=== PATIENT | male | born 1945 | race Caucasian/White ===

== ENCOUNTER 2022-04-03 08:58 | Outpatient (REF) | payer MEDICARE, SELFPAY ==
[2022-04-03 11:06] LABS: MANUAL DIFF FLAG NO
[2022-04-03 11:31] LABS: Appearance Urine HAZY; Color Urine YELLOW; Glucose Urine UA NEG (NEG); Leukocyte Esterase Urine 1+ (NEG); Nitrite Urine POS (NEG); PH 7.5 (5.0-8.0); Urine Blood TRACE (NEG); Urine Ketones NEG (NEG); Urine Protein NEG (NEG-TRACE)
[2022-04-03 11:45] LABS: Alanine Aminotransferase 53 U/L (0-40); Albumin Level 3.9 g/dL (3.5-5.0); Alkaline Phosphatase 73 U/L (39-117); Anion Gap 15 (12-20); Aspartate Amino Transferase 33 U/L (5-37); Bilirubin Total 1.1 mg/dL (0.0-1.0); Blood Urea Nitrogen 13 mg/dL (9-16); Calcium 9.3 mg/dL (8.4-10.2); Carbon Dioxide 24 mmol/L (22-29); Chloride 104 mmol/L (96-108); Cholesterol 166 mg/dL; Estimated Glomerular Filt Rate > 60; Glucose Fasting 149 mg/dL (60-99); HDL Cholesterol 36 mg/dL; LDL Cholesterol Calculated 95 mg/dl; Potassium 4.6 mmol/L (3.3-5.1); Sodium 138 mmol/L (135-145); Total Protein 6.8 g/dL (6.5-8.0); Triglycerides 178 mg/dL
[2022-04-03 11:46] LABS: Bacteria Urine 3+ /LPF; RBC Urine 0-2 /HPF (0); WBC Urine 30-49 /HPF (0-4)
[2022-04-03 12:09] LABS: Basophils Percent Auto 0.3 % (0-2); Eosinophils Absolute Auto 0.2 X10*3/uL (0.0-0.4); Eosinophils Percent Auto 3.1 % (0-4); Hematocrit 42.9 % (42.0-52.0); Hemoglobin 14.5 g/dl (14.0-18.0); Imm Gran Abs Auto 0.03 X10*3/uL (0.00-0.03); Imm Gran Pct Auto 0.5 % (0.0-0.4); Lymphocytes Absolute Auto 2.2 X10*3/uL (1.2-4.9); Lymphocytes Percent Auto 38.7 % (20-40); Mean Corpuscular HGB Conc 33.8 g/dl (31.0-36.0); Mean Corpuscular Hemoglobin 31.9 pg (27.0-33.0); Mean Corpuscular Volume 94.3 fL (80.0-98.0); Mean Platelet Volume 9.2 fL (9.4-12.4); Monocytes Absolute Auto 0.4 X10*3/uL (0.1-1.2); Monocytes Percent Auto 7.1 % (2-11); Neutrophils Absolute Auto 2.9 x10*3/uL (2.0-8.3); Neutrophils Percent Auto 50.3 % (45-73); Platelet Count 192 X10*3/uL (160-400); Prostate Specific Antigen Scr 2.91 ng/mL (<0.05-4.0); Red Blood Count 4.55 X10*6/uL (4.60-5.80); Red Cell Distribution Width 12.2 % (11.0-16.0); White Blood Count 5.8 X10*3/uL (4.8-10.8)
[2022-04-03 12:10] LABS: Creatinine Urine 82.79 mg/dL; Microalbum/Creatinine Ratio Ur 56.7 ug/mg cr
== END 2022-04-03 08:59 | disposition home or self-care (01) ==
LOC: HO.WFDLDS 08:58
PROVIDERS: Visit Provider Family Medicine
DX: Z00.00 Encounter for general adult medical examination without abnormal findings (principal); Z12.5 Encounter for screening for malignant neoplasm of prostate; I10 Essential (primary) hypertension
CPT/HCPCS: 36415; 80053; 80061; 81001; 82043; 84153; 84443; 85025

== ENCOUNTER 2022-06-16 | Outpatient (REF) | payer MEDICARE, SELFPAY | END 2022-06-16 00:01 | disposition home or self-care (01) | LOC: HO.LNP | PROVIDERS: Visit Provider Family Medicine | DX: R33.9 Retention of urine, unspecified (principal); R82.71 Bacteriuria | CPT/HCPCS: 87086 ==

== ENCOUNTER 2022-09-22 11:33 | Outpatient (REF) | payer MEDICARE, SELFPAY | END 2022-09-22 11:34 | disposition home or self-care (01) | LOC: HO.LAB 11:33 | PROVIDERS: Visit Provider Family Medicine | DX: Z13.89 Encounter for screening for other disorder (principal) ==

== ENCOUNTER 2023-06-30 07:49 | Outpatient (REF) | payer MEDICARE, SELFPAY ==
[2023-06-30 11:10] LABS: MANUAL DIFF FLAG NO
[2023-06-30 11:52] LABS: Alanine Aminotransferase 28 U/L (0-40); Albumin Level 3.9 g/dL (3.5-5.0); Alkaline Phosphatase 72 U/L (39-117); Anion Gap 12 (12-20); Aspartate Amino Transferase 20 U/L (5-37); Bilirubin Total 1.1 mg/dL (0.0-1.0); Blood Urea Nitrogen 16 mg/dL (9-16); Calcium 9.3 mg/dL (8.4-10.2); Carbon Dioxide 22 mmol/L (22-29); Chloride 108 mmol/L (96-108); Cholesterol 159 mg/dL (<200); Estimated Glomerular Filt Rate > 60; Glucose Fasting 137 mg/dL (60-99); HDL Cholesterol 34 mg/dL (>40); LDL Cholesterol Calculated 91 mg/dL (<100); Potassium 4.4 mmol/L (3.3-5.1); Sodium 138 mmol/L (135-145); Total Protein 6.8 g/dL (6.5-8.0); Triglycerides 174 mg/dL (<150)
[2023-06-30 11:53] LABS: Basophils Percent Auto 0.4 % (0-2); Eosinophils Absolute Auto 0.2 X10*3/uL (0.0-0.4); Eosinophils Percent Auto 2.4 % (0-4); Hematocrit 43.4 % (42.0-52.0); Hemoglobin 14.9 g/dl (14.0-18.0); Imm Gran Abs Auto 0.06 X10*3/uL (0.00-0.03); Imm Gran Pct Auto 0.8 % (0.0-0.4); Lymphocytes Absolute Auto 2.8 X10*3/uL (1.2-4.9); Lymphocytes Percent Auto 36.9 % (20-40); Mean Corpuscular HGB Conc 34.3 g/dl (31.0-36.0); Mean Corpuscular Hemoglobin 32.5 pg (27.0-33.0); Mean Corpuscular Volume 94.8 fL (80.0-98.0); Mean Platelet Volume 9.7 fL (9.4-12.4); Monocytes Absolute Auto 0.5 X10*3/uL (0.1-1.2); Monocytes Percent Auto 6.7 % (2-11); Neutrophils Percent Auto 52.8 % (45-73); Platelet Count 208 X10*3/uL (160-400); Red Blood Count 4.58 X10*6/uL (4.60-5.80); Red Cell Distribution Width 12.2 % (11.0-16.0); White Blood Count 7.6 X10*3/uL (4.8-10.8)
[2023-06-30 12:01] LABS: Appearance Urine Clear; Color Urine Yellow; Glucose Urine UA Negative (Negative); Leukocyte Esterase Urine Small (1+) (Negative); Nitrite Urine Negative (Negative); PH 5.5 (5.0-9.0); Prostate Specific Antigen Scr 4.56 ng/mL (<0.05-4.0); UMIC TRIGGER UA YES; Urine Blood Negative (Negative); Urine Ketones Negative (Negative); Urine Protein Negative (Neg-Trace)
[2023-06-30 12:11] LABS: TSH reflex Free T4 1.77 uIU/mL (0.32-4.0)
[2023-06-30 12:21] LABS: Bacteria Urine None Seen (None Seen); Hyaline Casts Urine 0-2 /LPF (0-2); RBC Urine 0-2 /HPF (0-2); Squamous Epithelial Cell Urine 0-2 /HPF (0-2); WBC Urine 0-5 /HPF (0-5)
[2023-06-30 12:24] LABS: Creatinine Urine 108.65 mg/dL; Microalbum/Creatinine Ratio Ur 39.5 ug/mg cr (<30)
== END 2023-06-30 07:50 | disposition home or self-care (01) ==
LOC: HO.WFDLDS 07:49
PROVIDERS: Visit Provider Family Medicine
DX: Z00.00 Encounter for general adult medical examination without abnormal findings (principal); I10 Essential (primary) hypertension; Z12.5 Encounter for screening for malignant neoplasm of prostate
CPT/HCPCS: 36415; 80053; 80061; 81001; 81003; 82043; 84153; 84443; 85025

== ENCOUNTER 2023-06-30 14:25 | Outpatient (AMB) | payer MEDICARE, SELFPAY ==
--- NOTE | 2023-06-30 14:28 | A.OFFPC_ITS ---
Vital Signs 06/30/23 14:30 Height 5 ft 11 in Weight 285 lb BMI 39.7 BP 130/70 Blood Pressure Location Lt brachial Position Sitting Pulse 56 Pulse Source Pulse Oximeter Pulse Oximetry (%) 98 Oxygen Delivery Method Room Air Intake Visit Reasons: f/u diabetes and hypertension Intake Note: Patient is here with diabetes and hypertension follow up. Patient is requesting Ketoconazole cream refill today. Allergies aspirin Allergy (Mild, Verified 04/30/23 14:37) swelling Tobacco use date assessed: 06/30/23 Fall risk assessment: No Falls in past year Last assessed Fall Risk: 06/30/23 Dental Screening Dental Screen Date: 06/30/23 Did you have a dental visit in the last 12 months?: Yes Did you have a dental problem in the last 6 months where you did not have access to dental care?: No Was dental information given to patient?: Patient has dentist HPI f/u diabetes and hypertension HPI Details 77 y/o male presents to f/u diabetes and hypertension. Last A1c 04/30/23 6.7%. He is on metformin 250mg b.i.d. Blood pressure today is 130/70. He is on metoprolol 25mg and hydrochlorothiazide 12.5mg daily. Labs were drawn 02/28/23. Reviewed labs with pt. Triglycerides 174. TC 159. LDL 91. HDL low at 34. PSA elevated at 4.56. Microalb/Creat Ratio 39.5 ug/mg. [facility] Medical History Deviated septum Surgical History H/O right inguinal hernia repair H/O transurethral resection of prostate Social History Housing: House Patient Tobacco Use Status: Never used Tobacco e-Cigarette/Vaping Use: Never Used Second Hand Smoke Exposure: No service: No Current occupational status: retired Current occupational exposures/hazards: No Cognitive needs: No Hearing needs: No Vision needs: No Questionnaire RADHA-7 AMB Questionnaire RADHA-7 Date RADHA - 7 assessed: 03/25/22 Source: Developed by Drs. Randall Ya, Monet B.W. Darrell Callejas and colleagues, with an educational елена from [employer] Review of Systems Const Denies chills, Denies fatigue, Denies fever(s), Denies headache(s) and Denies weakness ENT Denies dizziness and Denies headache(s) Card Denies chest pain, Denies lightheadedness, Denies dyspnea and Denies other (Palpitations) Resp Denies cough, Denies dyspnea, Denies wheezing and Denies other ( shortness of breath) Musc Denies numbness and Denies tingling Neuro Denies dizziness, Denies headache(s), Denies numbness, Denies tingling, Denies paresthesias and Denies weakness Psych Denies anxiety and Denies depression Endo Denies fatigue Aller/Immun Denies wheezing Physical exam (Primary Care) Vital Signs: Last Vital Signs Pulse 56 06/30/23 14:30 BP 130/70 06/30/23 14:30 Pulse Ox 98 06/30/23 14:30 Oxygen Delivery Method Room Air 06/30/23 14:30 BMI result Body Mass Index 39.7 Tobacco/Smoking Status: Tobacco use Status Tobacco use date assessed 06/30/23 06/30/23 14:37 Patient Tobacco Use Status Never used Tobacco 06/30/23 14:37 e-Cigarette/Vaping Use Never Used 06/30/23 14:37 Const General: no acute distress and well developed Nutritional Appearance: well nourished Orientation/consciousness: patient oriented x3 HENMT Head: Yes normocephalic and Yes atraumatic Eyes General: appearance normal, both eyes and all related structures Pupils: Equal, round and reactive pupils present EOM: EOMs intact bilaterally Resp Effort & Inspection: normal respiratory effort Auscultation: clear to auscultation bilaterally Cardio Rate: regular rate Rhythm: regular rhythm Heart sounds: S1 normal heart sound present, S2 normal heart sound present, no gallops, no murmurs and no rubs Neuro General: patient oriented x3 and gait normal Cranial nerves: Yes Equal, round and reactive pupils present Psych Affect: normal affect Assessment and Plan Assessment & Plan (1) Diabetes: Code(s): E11.9 - Type 2 diabetes mellitus without complications Plan: A1c at last office visit was 6.7%. Good control. No significant changes in diet or weight Encouraged exercise (2) Hypertension: Code(s): I10 - Essential (primary) hypertension Plan: Blood pressure is controlled though little higher than his last visit Adding a small dose of lisinopril which may help with blood pressure as well as microalbuminuria (3) Microalbuminuria: Code(s): R80.9 - Proteinuria, unspecified Plan: Adding some lisinopril (4) Elevated PSA: Code(s): R97.20 - Elevated prostate specific antigen [PSA] Plan: History of BPH and TURP in about 2004 No current urologist-referring to Urology Orders: Referrals Urology Referral R97.20 - Elevated prostate specific antigen [PSA] Medications: New lisinopril 2.5 mg PO DAILY 30 tabs 2RF 30 days Refilled ketoconazole 2% 1 appl topical DAILY 30 days 60 grams 2RF Coding Level of Care Code Est Pt Level 4 (15890) Diagnoses Diabetes E11.9 Hypertension I10 Microalbuminuria R80.9 Elevated PSA R97.20
[2023-06-30 14:30] VITALS: BP 130/70; PULSE 56; O2SAT 98; BMI 39.7
== END 2023-06-30 15:17 | disposition home or self-care (01) ==
PROVIDERS: PCP Family Medicine; Visit Provider Family Medicine
DX: E11.9 Type 2 diabetes mellitus without complications (principal); I10 Essential (primary) hypertension; R80.9 Proteinuria, unspecified; R97.20 Elevated prostate specific antigen [PSA]
CPT/HCPCS: 99214

== ENCOUNTER 2023-08-24 09:58 | Outpatient (AMB) | payer MEDICARE, SELFPAY ==
--- NOTE | 2023-08-24 10:00 | A.OFFVIS_ITS ---
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 Accompanied by: Self / Same As Patient Allergies aspirin Allergy (Mild, Verified 08/24/23 10:35) swelling Medication List - Last Reconciled 08/24/23 by EM JamaP- cetirizine (All Day Allergy (cetirizine)) 10 mg PO DAILY PRN 90 days clopidogrel 75 mg PO DAILY 90 days diphenhydramine HCl 2% (Benadryl) 1 appl topical TID PRN 14 days fluticasone propionate 50 mcg/actuation (Flonase Allergy Relief) 1 spray intranasal Q12H 30 days ketoconazole 2% 1 appl topical DAILY 30 days lisinopril 2.5 mg PO DAILY 30 days metformin 250 mg (1/2 x 500 mg) PO BID 90 days metoprolol succinate ER 25 mg PO DAILY 90 days simvastatin 20 mg PO BEDTIME 90 days HPI HPI Comments History of Present Illness Details Gilberto is a very pleasant 77-year-old male patient of . Has a past medical history of hypertension, hyperlipidemia, diabetes, and seasonal allergies. He presents to the office today as a new patient for an elevated PSA. In discussion with the patient today reports to be doing and feeling well. He reports previous TURP in [address] [facility]. However, has not followed up with a urologist in many years. In review of patient's chart it appears PSAs are as follows: 03/30-2.9 07/01--4.6 When asked he denies any bothersome urinary issues or concerns at this time. Does report urinary frequency in the morning however relates this to his coffee consumption. He otherwise denies urinary urgency, urinary frequency, incontinence, nocturia, hematuria, dysuria, foul smelling urine, changes to urinary stream, flank pain, fever, and or chills. He is happy with his current voiding parameters. Discussed at length potential causes for elevated PSA. Discussed redraw of PSA with no sex the night before, no coffee/caffeine morning of, and no heavy lifting 1-2 days prior to lab draw. Discussed obtaining retroperitoneal ultrasound for further assessment evaluation. In office urinalysis results reviewed with the patient today. CHANTELLE offered and deferred. He otherwise offers no other issues or concerns at this time. [facility] Medical History (Updated 08/24/23 @ 10:42 by MARLON Jama) Diabetes Hyperlipidemia Hypertension Deviated septum Surgical History H/O transurethral resection of prostate H/O right inguinal hernia repair Social History Housing: House Patient Tobacco Use Status: Never used Tobacco e-Cigarette/Vaping Use: Never Used Second Hand Smoke Exposure: No service: No Current occupational status: retired Current occupational exposures/hazards: No Cognitive needs: No Hearing needs: No Vision needs: No Review of Systems Const All systems reviewed & are unremarkable except as noted in HPI and below Eyes Reports no additional complaints ENT Reports no additional complaints Card Reports as per HPI Resp Reports no additional complaints GI Reports no additional complaints Reports as per HPI Musc Reports no additional complaints Neuro Reports no additional complaints Psych Reports no additional complaints Endo Reports as per HPI Osei/Lymph Reports no additional complaints Aller/Immun Reports as per HPI Physical Exam Const General: cooperative, healthy appearing, comfortable, no acute distress, well developed, alert and awake Nutritional Appearance: overweight Orientation/consciousness: patient oriented x3 Limitations: no limitations HEENT Head: Yes normal to inspection, Yes normocephalic and Yes atraumatic Ears: hearing grossly normal bilaterally Eyes General: appearance normal, both eyes and all related structures Neck Neck: Yes normal visual inspection and Yes trachea midline Chest Chest palpation & inspection: normal inspection of the chest Resp Effort & Inspection: normal respiratory effort and able to speak in complete sentences Cardio Rate: regular rate GI Inspection: Yes normal to inspection General: Yes no CVA tenderness Back/Spine/Pelvis Back: no CVA tenderness Skin General skin exam: no rashes or lesions noted Neuro General: patient oriented x3 Extrem General: Yes normal to inspection Psych Appearance: grossly normal and well kempt Mental Status: mental status grossly normal Speech and movement: Normal speech and movement present and Clear speech present Affect: normal affect Attitude: cooperative Thought process: Normal thought process present Thought content: Normal thought content present Insight: Fair insight present (Psych) Judgement: Fair judgement present (Psych) Results AMB Urinalysis, Automated UA Leukoctes 0 Arnold/uL Last Edit by Lisset Enciso on 08/24/23 10:19 UA Nitrite Negative Last Edit by [employer] Luciass on 08/24/23 10:19 UA Urobilinogen 0.2 mg/dL Last Edit by [employer] Bress on 08/24/23 10:19 UA Protein 30 mg/dL Last Edit by [employer] Luciass on 08/24/23 10:19 UA pH 6.0 Last Edit by [employer] GoodyTagss on 08/24/23 10:19 UA Blood 0 Aureliano/uL Last Edit by [employer] GoodyTagss on 08/24/23 10:19 UA Specific [place] 1.025 Last Edit by [employer]yan[employer] on 08/24/23 10:19 UA Ketone Negative Last Edit by [employer] Goody[employer]rob on 08/24/23 10:19 UA Bilirubin 0 mg/dL Last Edit by [employer] Goody[employer]rob on 08/24/23 10:19 UA Glucose 0 mg/dL Last Edit by [employer] on 08/24/23 10:19 Results Reviewed Results Reviewed: Laboratory Last Values Urine pH (Auto) 6.0 08/24/23 10:11 Specific [place] (Auto) 1.025 08/24/23 10:11 Urine Protein (Auto) 30 mg/dL 08/24/23 10:11 Glucose (UA)(Auto) 0 mg/dL 08/24/23 10:11 Urine Ketones (Auto) Negative 08/24/23 10:11 Urine Blood (Auto) 0 Aureliano/uL 08/24/23 10:11 Urine Nitrite (Auto) Negative 08/24/23 10:11 Urine Bilirubin (Auto) 0 mg/dL 08/24/23 10:11 Urine Urobilinogen (Auto) 0.2 mg/dL 08/24/23 10:11 Leukocyte Esterase (Auto) 0 Arnold/uL 08/24/23 10:11 Assessment & Plan Assessment & Plan (1) Urinary frequency: Code(s): R35.0 - Frequency of micturition (2) Elevated PSA: Code(s): R97.20 - Elevated prostate specific antigen [PSA] Plan In office urinalysis results reviewed with the patient today; as noted above. Discussed at length potential causes for elevated PSA. Discussed importance of managing diabetes for improvement in overall health and well-being. Will obtain redraw of PSA with specific instructions as noted above. Will obtain retroperitoneal ultrasound for further assessment evaluation. Patient denies any bothersome urinary issues or concerns at this time He reports be happy with current voiding parameters Follow-up in 4-6 weeks with imaging and labs to be completed prior; or sooner with any issues, concerns, and or questions. Orders: Orders US retroperitoneal comp Today R35.0 - Frequency of micturition AMB Urinalysis Automated Today Z13.9 - Encounter for screening, unspecified PSA,Total (Free>4and<10) Today R97.20 - Elevated prostate specific antigen [PSA] Patient Instructions: The patient had an opportunity to ask questions regarding the treatment plan. All questions were answered. Physical exam, labs, and imaging were discussed and reviewed in detail. As well as risks, benefits, and discussion of treatment choices. No major barriers to understanding were identified. The patient expressed understanding and agreement with the above treatment plan. The patient was made aware they should contact our office by phone for worsening of their current condition, the appearance of new symptoms, or with any questions or concerns. Compliance is encouraged with any medications and follow up testing that is ordered. It is a privilege to be allowed the opportunity to participate in? your urological care.? Again, if you have any questions or concerns If you have any questions or concerns please do not hesitate to contact me. The office is [phone]. This note is constructed using voice recognition software. While every effort has been made to ensure accuracy character impersonator errors may have been included. Yours sincerely, MARLON Jama Coding Level of Care Code New Pt Level 3 (43232) Diagnoses Urinary frequency R35.0 Elevated PSA R97.20
== END 2023-08-24 10:39 | disposition home or self-care (01) ==
PROVIDERS: PCP Family Medicine; Visit Provider Nurse Practitioner Family
DX: R35.0 Frequency of micturition (principal); R97.20 Elevated prostate specific antigen [PSA]; Z13.9 Encounter for screening, unspecified
CPT/HCPCS: 99203

== ENCOUNTER → 2023-08-24 09:58 | Outpatient (BNVA) | payer MEDICARE, SELFPAY | PROVIDERS: PCP Family Medicine; Visit Provider Nurse Practitioner Family | DX: R35.0 Frequency of micturition (principal); R97.20 Elevated prostate specific antigen [PSA] | CPT/HCPCS: 81003 ==

== ENCOUNTER 2023-09-28 10:09 | Outpatient (REF) | payer MEDICARE, SELFPAY ==
--- NOTE | ~2023-09-28 | US_ITS ---
EXAMINATION: US RETROPERITONEAL COMPLETE (RENAL) CLINICAL INFORMATION: Frequency of micturition. COMPARISON: None available. TECHNIQUE: Real-time imaging of the kidneys and bladder. Limited visualization due to bowel gas and body habitus. FINDINGS: RIGHT KIDNEY: 12.6 x 6.3 x 5.7 cm (SAG x AP x TRV). Right renal 0.5 cm upper pole calculus. No hydronephrosis. Renal cortical thickness is normal. Limited visualization. LEFT KIDNEY: 12.3 x 6.4 x 5 x 2.9 cm (SAG x AP x TRV). No hydronephrosis. No renal calculi. Renal cortical thickness is normal. Limited visualization. Left renal lower pole 1.6 x 1.4 x 1.7 cm cyst with benign features. There is no indication for follow-up imaging. BLADDER: Well-distended and unremarkable. Bilateral ureteral jets are demonstrated. Prevoid bladder volume is 380.0 mL. Postvoid bladder volume is 246.2 mL. ADDITIONAL FINDINGS: Enlarged prostate with volume 213.0 mL is very difficult to evaluate due to severely limited visualization and therefore these measurements are of limited accuracy. US/US retroperitoneal comp IMPRESSION: 1. Right renal 0.5 cm upper pole calculus. No hydronephrosis. 2. Post void bladder volume is 246.2 mL. 3. Enlarged prostate with volume 213.0 mL is very difficult to evaluate due to severely limited visualization and therefore these measurements are of limited accuracy.
[2023-09-28 11:53] LABS: Estimated Average Glucose 151 mg/dL; Hemoglobin A1c % 6.9 % (<6.0)
[2023-09-28 12:52] LABS: Alanine Aminotransferase 27 U/L (0-40); Albumin Level 4.1 g/dL (3.5-5.0); Alkaline Phosphatase 67 U/L (39-117); Anion Gap 11 (12-20); Aspartate Amino Transferase 20 U/L (5-37); Bilirubin Total 1.1 mg/dL (0.0-1.0); Blood Urea Nitrogen 13 mg/dL (9-16); Calcium 9.1 mg/dL (8.4-10.2); Carbon Dioxide 27 mmol/L (22-29); Chloride 106 mmol/L (96-108); Estimated Glomerular Filt Rate > 60; Glucose Fasting 137 mg/dL (60-99); Potassium 4.1 mmol/L (3.3-5.1); Sodium 140 mmol/L (135-145); Total Protein 7.1 g/dL (6.5-8.0)
== END 2023-09-28 10:10 | disposition home or self-care (01) ==
LOC: HO.US 10:09
PROVIDERS: PCP Family Medicine; Visit Provider Nurse Practitioner Family
DX: Z00.00 Encounter for general adult medical examination without abnormal findings (principal); R35.0 Frequency of micturition; L98.9 Disorder of the skin and subcutaneous tissue, unspecified; R73.01 Impaired fasting glucose
CPT/HCPCS: 36415; 76770; 80053; 83036

== ENCOUNTER 2023-10-05 13:49 | Outpatient (AMB) | payer MEDICARE, SELFPAY ==
[2023-10-05 13:59] VITALS: BP 130/72; PULSE 64; O2SAT 98; BMI 39.0
--- NOTE | 2023-10-05 13:59 | MHC.PC.OV ---
Vital Signs 10/05/23 13:59 Height 5 ft 11 in Weight 279 lb 8 oz BMI 39.0 BP 130/72 Blood Pressure Location Lt brachial Position Sitting Pulse 64 Pulse Source Pulse Oximeter Pulse Oximetry (%) 98 Oxygen Delivery Method Room Air Intake Visit Reasons: CPE with f/u labs and health maint. Intake Note: Patient is here for his physical today and follow up on labs. Patient would like a refill on his Lisinopril. Allergies aspirin Allergy (Mild, Verified 10/05/23 14:03) swelling Tobacco use date assessed: 06/30/23 HPI CPE with f/u labs and health maint. HPI Details 77 y/o male presents for a CPE with f/u labs and health maintenance. Labs were drawn 09/28/23. Reviewed labs with pt. A1c 6.9%. He is on metformin 250mg b.i.d. Lipid panel drawn in June. Triglycerides 174. TC 159. LDL 91. HDL low at 34. PSA elevated at 4.56. He reports he sees his urologist tomorrow. He notes he has not had a pneumonia shot before. [facility] Medical History (Updated 08/24/23 @ 10:42 by Renuka Adair [facility]) Diabetes Hyperlipidemia Hypertension Deviated septum Surgical History H/O transurethral resection of prostate H/O right inguinal hernia repair Housing: House Patient Tobacco Use Status: Never used Tobacco e-Cigarette/Vaping Use: Never Used Second Hand Smoke Exposure: No service: No Current occupational status: retired Current occupational exposures/hazards: No Cognitive needs: No Hearing needs: No Vision needs: No Questionnaire RADHA-7 AMB Questionnaire RADHA-7 Date RADHA - 7 assessed: 03/25/22 Source: Developed by Drs. Randall Ya, Monet Callejas, Darrell Harmon and colleagues, with an educational елена from [employer]. Review of Systems Const Denies chills, Denies fatigue, Denies fever(s), Denies headache(s) and Denies weakness Eyes Denies change in vision ENT Denies dizziness, Denies headache(s), Denies hearing loss, Denies nasal congestion, Denies sinus pain, Denies sinus pressure and Denies sore throat Card Denies chest pain, Denies lightheadedness, Denies dyspnea and Denies other (palpitations) Resp Denies cough, Denies dyspnea and Denies wheezing GI Denies abdominal pain, Denies melena, Denies hematochezia, Denies change in bowel habits, Denies dyspepsia and Denies nausea Denies hematuria and Denies dysuria Musc Denies abnormal gait, Denies myalgias, Denies arthralgias, Denies numbness and Denies tingling Skin/Breast Denies rash, Denies unusual bruising and Denies wounds Neuro Denies abnormal gait, Denies dizziness, Denies headache(s), Denies memory loss, Denies numbness, Denies Sensory deficit (Neuro), Denies tingling and Denies weakness Psych Denies anxiety, Denies depression and Denies memory loss Endo Denies cold intolerance, Denies fatigue, Denies heat intolerance, Denies polydipsia and Denies polyuria Osei/Lymph Denies easy bleeding and Denies easy bruising Aller/Immun Denies wheezing Physical exam (Primary Care) Vital Signs: Last Vital Signs Pulse 64 10/05/23 13:59 BP 130/72 10/05/23 13:59 Pulse Ox 98 10/05/23 13:59 Oxygen Delivery Method Room Air 10/05/23 13:59 BMI result Body Mass Index 39.0 Tobacco/Smoking Status: Tobacco use Status Tobacco use date assessed 06/30/23 10/05/23 14:02 Patient Tobacco Use Status Never used Tobacco 10/05/23 14:02 e-Cigarette/Vaping Use Never Used 10/05/23 14:02 Const General: no acute distress, well developed, alert and awake Nutritional Appearance: well nourished and obese Orientation/consciousness: patient oriented x3 HENMT Head: Yes normocephalic and Yes atraumatic Ears: hearing grossly normal bilaterally and TM's normal bilaterally General nose exam: Normal external nose present and Normal nares present Mouth: Normal oral and palatal mucosa present and moist mucous membranes Teeth and gingiva: dentition normal Throat: Yes posterior oropharynx normal Eyes General: appearance normal, both eyes and all related structures Pupils: Equal, round and reactive pupils present and Pupil accommodation reflex normal EOM: EOMs intact bilaterally Neck Neck: Yes normal visual inspection, Yes no lymphadenopathy and Yes trachea midline Thyroid: Thyroid normal Carotids: no bruits Lymphatic: no lymphadenopathy noted Chest Chest palpation & inspection: normal inspection of the chest Resp Effort & Inspection: normal respiratory effort Auscultation: clear to auscultation bilaterally Cardio Rate: regular rate Rhythm: regular rhythm Heart sounds: S1 normal heart sound present, S2 normal heart sound present, no gallops, no murmurs and no rubs Bruits: no abdominal aortic bruits and no carotid bruits GI Palpation (GI): No Abdominal aortic bruit present, Soft to palpation, nontender, No hepatosplenomegaly present and No Rebound tenderness present Auscultation: normal bowel sounds General: Yes no CVA tenderness Back/Spine/Pelvis Back: no CVA tenderness Cervical Spine: cervical ROM normal and No Cervical spine tenderness Thoracic/Lumbar Spine: thoraco-lumbar ROM normal, No pain with thoraco-lumbar ROM, No thoracic spinal tenderness and No lumbar spinal tenderness Skin Lesions: no lesions Rashes: no rashes Trauma: no lacerations or abrasions Wounds: no wounds Nails: normal Neuro General: patient oriented x3 Cranial nerves: Yes Equal, round and reactive pupils present Cognition (Neuro): normal cognition Gait exam (Neuro): Normal gait present Motor exam (neuro): 5/5 motor strength present throughout Sensory Exam: No Sensory deficit (Neuro) Deep tendon reflexes (DTR's): Right patellar reflex intensity grade: 2+ and Left patellar reflex intensity grade: 2+ Extrem General: Yes normal to inspection and No edema Psych Appearance: grossly normal Affect: normal affect Attitude: cooperative Thought process: Normal thought process present Assessment and Plan Assessment & Plan (1) Adult general medical exam: Code(s): Z00.00 - Encounter for general adult medical examination without abnormal findings Plan: 77-year-old?male?presents?for?complete?physical?exam Encouraged?healthy?diet?with?active?lifestyle?and?plenty?of?exercise (2) Hyperlipidemia: Code(s): E78.5 - Hyperlipidemia, unspecified Plan: TC?and?LDL?are?controlled?with?simvastatin. Triglycerides?are?mildly?elevated?and?his?HDL?is?too?low. Encouraged?exercise?and?control?of?his?saturated?fats?and?cholesterol?and?sugars. (3) Hypertension: Code(s): I10 - Essential (primary) hypertension Plan: Had?added?lisinopril?for?mildly?elevated?blood?pressures?and?some?microalbuminuria. He?was?tolerating?this?well?but?is?out. Will?refill?lisinopril (4) Diabetes: Code(s): E11.9 - Type 2 diabetes mellitus without complications Plan: A1c?is?controlled.??Goal?is?less?than?7.0% Continue?to?work?at?a?diet?lower?in?sugars?and?starches Continue?current?medication?regimen (5) Elevated PSA: Code(s): R97.20 - Elevated prostate specific antigen [PSA] Plan: Elevated?PSA Decreased?urine?stream Repeating?this?and?he?has?an?appointment?with?Urology?tomorrow. (6) Screening for colon cancer: Code(s): Z12.11 - Encounter for screening for malignant neoplasm of colon (7) Screening for prostate cancer: Code(s): Z12.5 - Encounter for screening for malignant neoplasm of prostate Plan: Will?get?most?recent?colonoscopy?report?to?see?if/when?he?is?due?for?another?colonoscopy. (8) Immunization counseling: Code(s): Z71.85 - Encounter for immunization safety counseling Plan: Recommended?high-dose?flu?shot.??Patient?would?prefer?to?get?his?flu?shot?here?and?so?will?receive?a?regular?dose?flu?shot. Also?recommended?pneumonia?shot Coding Level of Care Code Est Pt Level 3 (00899) Est Pt Prev Care >65y(30539) Diagnoses Adult general medical exam Z00.00 Hyperlipidemia E78.5 Hypertension I10 Diabetes E11.9 Elevated PSA R97.20 Screening for colon cancer Z12.11 Screening for prostate cancer Z12.5 Immunization counseling Z71.85
--- NOTE | 2023-10-05 15:18 | A.OFFPC_ITS ---
Vital Signs 10/05/23 13:59 Height 5 ft 11 in Weight 279 lb 8 oz BMI 39.0 BP 130/72 Blood Pressure Location Lt brachial Position Sitting Pulse 64 Pulse Source Pulse Oximeter Pulse Oximetry (%) 98 Oxygen Delivery Method Room Air Intake Visit Reasons: CPE with f/u labs and health maint. Allergies aspirin Allergy (Mild, Verified 10/05/23 14:03) swelling Tobacco use date assessed: 06/30/23 FORMERLY [facility], [facility] Medical History (Updated 08/24/23 @ 10:42 by Renuka Adair [facility]) Diabetes Hyperlipidemia Hypertension Deviated septum Surgical History H/O transurethral resection of prostate H/O right inguinal hernia repair Housing: House Patient Tobacco Use Status: Never used Tobacco e-Cigarette/Vaping Use: Never Used Second Hand Smoke Exposure: No service: No Current occupational status: retired Current occupational exposures/hazards: No Cognitive needs: No Hearing needs: No Vision needs: No Questionnaire RADHA-7 AMB Questionnaire RADHA-7 Date RADHA - 7 assessed: 03/25/22 Source: Developed by Drs. Randall Ya, Monet Callejas, Darrell Harmon and colleagues, with an educational елена from [employer]. Physical exam (Primary Care) Vital Signs: Last Vital Signs Pulse 64 10/05/23 13:59 BP 130/72 10/05/23 13:59 Pulse Ox 98 10/05/23 13:59 Oxygen Delivery Method Room Air 10/05/23 13:59 BMI result Body Mass Index 39.0 Tobacco/Smoking Status: Tobacco use Status Tobacco use date assessed 06/30/23 10/05/23 15:21 Patient Tobacco Use Status Never used Tobacco 10/05/23 15:21 e-Cigarette/Vaping Use Never Used 10/05/23 15:21 Assessment and Plan Assessment & Plan (1) Adult general medical exam: Code(s): Z00.00 - Encounter for general adult medical examination without abnormal findings (2) Hyperlipidemia: Code(s): E78.5 - Hyperlipidemia, unspecified (3) Hypertension: Code(s): I10 - Essential (primary) hypertension (4) Diabetes: Code(s): E11.9 - Type 2 diabetes mellitus without complications (5) Elevated PSA: Code(s): R97.20 - Elevated prostate specific antigen [PSA] (6) Screening for colon cancer: Code(s): Z12.11 - Encounter for screening for malignant neoplasm of colon (7) Screening for prostate cancer: Code(s): Z12.5 - Encounter for screening for malignant neoplasm of prostate (8) Immunization counseling: Code(s): Z71.85 - Encounter for immunization safety counseling Orders: Orders 2 Lipid Panel Today E78.5 - Hyperlipidemia, unspecified, Z00.00 - Encounter for general adult medical examination without abnormal findings Comprehensive [place]. Panel Fast Today E78.5 - Hyperlipidemia, unspecified, Z00.00 - Encounter for general adult medical examination without abnormal findings Microalbumin, Random (w Creat) Today I10 - Essential (primary) hypertension Hemoglobin A1c Today E11.9 - Type 2 diabetes mellitus without complications, R73.01 - Impaired fasting glucose Medications: Refilled lisinopril 2.5 mg PO DAILY 90 tabs 2RF 30 days Coding Diagnoses Adult general medical exam Z00.00 Hyperlipidemia E78.5 Hypertension I10 Diabetes E11.9 Elevated PSA R97.20 Screening for colon cancer Z12.11 Screening for prostate cancer Z12.5 Immunization counseling Z71.85
== END 2023-10-05 15:13 | disposition home or self-care (01) ==
PROVIDERS: PCP Family Medicine; Visit Provider Family Medicine
DX: Z23 Encounter for immunization (principal)
CPT/HCPCS: 90471; 90686; 99213; 99397

== ENCOUNTER 2023-10-05 15:53 | Outpatient (REF) | payer MEDICARE, SELFPAY ==
[2023-10-05 16:38] LABS: Estimated Average Glucose 148 mg/dL; Hemoglobin A1c % 6.8 % (<6.0)
[2023-10-05 17:12] LABS: Appearance Urine Clear; Color Urine Yellow; Glucose Urine UA Negative (Negative); Leukocyte Esterase Urine Trace (Negative); Nitrite Urine Negative (Negative); PH 5.5 (5.0-9.0); UMIC TRIGGER UA YES; Urine Blood Negative (Negative); Urine Ketones Trace mg/dL (Negative); Urine Protein 30 (1+) mg/dL (Neg-Trace)
[2023-10-05 17:24] LABS: Alanine Aminotransferase 41 U/L (0-40); Albumin Level 4.4 g/dL (3.5-5.0); Alkaline Phosphatase 72 U/L (39-117); Anion Gap 14 (12-20); Aspartate Amino Transferase 43 U/L (5-37); Bilirubin Total 0.9 mg/dL (0.0-1.0); Blood Urea Nitrogen 17 mg/dL (9-16); Calcium 9.8 mg/dL (8.4-10.2); Carbon Dioxide 27 mmol/L (22-29); Chloride 103 mmol/L (96-108); Cholesterol 206 mg/dL (<200); Estimated Glomerular Filt Rate > 60; Glucose Fasting 117 mg/dL (60-99); HDL Cholesterol 36 mg/dL (>40); LDL Cholesterol Calculated 104 mg/dL (<100); Potassium 4.6 mmol/L (3.3-5.1); Sodium 139 mmol/L (135-145); Total Protein 7.7 g/dL (6.5-8.0); Triglycerides 331 mg/dL (<150)
[2023-10-05 17:33] LABS: Bacteria Urine None Seen (None Seen); Hyaline Casts Urine 0-2 /LPF (0-2); RBC Urine 0-2 /HPF (0-2); Squamous Epithelial Cell Urine 0-2 /HPF (0-2)
[2023-10-05 17:43] LABS: PSA,Total (Free>4and<10) 6.18 ng/mL (0.00-4.00)
[2023-10-05 18:42] LABS: Creatinine Urine 123.45 mg/dL; Microalbum/Creatinine Ratio Ur 110.1 ug/mg cr (<30)
[2023-10-07 10:29] LABS: Free Prostate Spec Ag 1.1 ng/mL; Percent Free Prostate Spec Ag 22 % (calc) (>25)
== END 2023-10-05 15:54 | disposition home or self-care (01) ==
LOC: HO.LAB 15:53
PROVIDERS: PCP Family Medicine; Visit Provider Nurse Practitioner Family
DX: Z00.00 Encounter for general adult medical examination without abnormal findings (principal); E78.5 Hyperlipidemia, unspecified; I10 Essential (primary) hypertension; E11.9 Type 2 diabetes mellitus without complications; R97.20 Elevated prostate specific antigen [PSA]; Z12.5 Encounter for screening for malignant neoplasm of prostate
CPT/HCPCS: 36415; 80053; 80061; 81001; 82043; 82570; 83036; 84153; 84154

== ENCOUNTER 2023-10-06 09:51 | Outpatient (AMB) | payer MEDICARE, SELFPAY ==
--- NOTE | 2023-10-06 09:56 | A.OFFVIS_ITS ---
Intake Intake Visit Reasons: 4w/PSA/US Intake Note: Patient presents for initial visit for elevated psa/ultrasound/labs (imaging 09/28/23) Urology Medications: none Blood Thinner: clopidogrel Piece Jobber Required: No Accompanied by: Self / Same As Patient Allergies aspirin Allergy (Mild, Verified 10/06/23 21:17) swelling Medication List - Last Reconciled 10/06/23 by EM JamaP- cetirizine (All Day Allergy (cetirizine)) 10 mg PO DAILY PRN 90 days clopidogrel 75 mg PO DAILY 90 days diphenhydramine HCl 2% (Benadryl) 1 appl topical TID PRN 14 days fluticasone propionate 50 mcg/actuation (Flonase Allergy Relief) 1 spray intranasal Q12H 30 days ketoconazole 2% 1 appl topical DAILY 30 days lisinopril 2.5 mg PO DAILY 30 days metformin 250 mg (1/2 x 500 mg) PO BID 90 days metoprolol succinate ER 25 mg PO DAILY 90 days simvastatin 20 mg PO BEDTIME 90 days terazosin 5 mg PO BEDTIME 30 days HPI HPI Comments History of Present Illness Details Gilberto is a very pleasant 77-year-old male patient of . He has a past medical history of hypertension, hyperlipidemia, diabetes, and seasonal allergies. He presents to the office today for follow-up of his elevated PSA. Of note, patient was seen approximately 6 weeks ago as a new patient for an elevated PSA at which time a redraw of a PSA was ordered and a retroperitoneal ultrasound for further assessment evaluation. These results reviewed with the patient today. Right kidney with 0.5 cm upper pole calculus. No hydronephrosis noted. Left kidney with no hydronephrosis or calculi noted. Left renal lower pole 1.6 x 1.4 x 1.7 cm cyst with benign features. There is no indication for follow-up imaging per radiology report. The bladder is well distended and unremarkable. Bilateral ureteral jets are demonstrated. Pre void bladder volume is approximately 380 mL. Postvoid bladder volume is approximately 250 mL. The prostate is enlarged with a volume of approximately 215 mL however it is very difficult to evaluate due to severely limited visualization and therefore these measurements are limited to accuracy per radiology report. In discussion with the patient today reports to be doing and feeling well. He reports previous TURP in [address] [facility]. However, has not followed up with a urologist in many years. PSAs are as follows: 03/30-2.9 07/01--4.6 10/01--6.2 percent free: PENDING When asked he denies any bothersome urinary issues or concerns at this time. He does report urinary frequency in the morning however relates this to his coffee consumption. He otherwise denies urinary urgency, urinary frequency, incontinence, nocturia, hematuria, dysuria, foul smelling urine, changes to urinary stream, flank pain, fever, and or chills. He is happy with his current voiding parameters. Discussed at length potential causes for elevated PSA. Discussed causes and affects of incomplete bladder emptying. In office urinalysis results reviewed with the patient today. % free PSA pending. Discussed at length surveillance monitoring of PSA verses MRI of the prostate verses initiation of finasteride versus prostate biopsy. Discussed these interventions at length. CHANTELLE offered and deferred. He otherwise offers no other issues or concerns at this time. [facility] Medical History Diabetes Hyperlipidemia Hypertension Deviated septum Surgical History H/O transurethral resection of prostate H/O right inguinal hernia repair Social History Housing: House Patient Tobacco Use Status: Never used Tobacco e-Cigarette/Vaping Use: Never Used Second Hand Smoke Exposure: No service: No Current occupational status: retired Current occupational exposures/hazards: No Cognitive needs: No Hearing needs: No Vision needs: No Review of Systems Const All systems reviewed & are unremarkable except as noted in HPI and below Eyes Reports no additional complaints ENT Reports no additional complaints Card Reports as per HPI Resp Reports no additional complaints GI Reports no additional complaints Reports as per HPI Musc Reports no additional complaints Neuro Reports no additional complaints Psych Reports no additional complaints Endo Reports as per HPI Osei/Lymph Reports no additional complaints Aller/Immun Reports as per HPI Physical Exam Const General: cooperative, healthy appearing, comfortable, no acute distress, well developed, alert and awake Nutritional Appearance: overweight Orientation/consciousness: patient oriented x3 Limitations: no limitations HEENT Head: Yes normal to inspection, Yes normocephalic and Yes atraumatic Ears: hearing grossly normal bilaterally Eyes General: appearance normal, both eyes and all related structures Neck Neck: Yes normal visual inspection and Yes trachea midline Chest Chest palpation & inspection: normal inspection of the chest Resp Effort & Inspection: normal respiratory effort and able to speak in complete sentences Cardio Rate: regular rate GI Inspection: Yes normal to inspection General: Yes no CVA tenderness Back/Spine/Pelvis Back: no CVA tenderness Skin General skin exam: no rashes or lesions noted Neuro General: patient oriented x3 Extrem General: Yes normal to inspection Psych Appearance: grossly normal and well kempt Mental Status: mental status grossly normal Speech and movement: Normal speech and movement present and Clear speech present Affect: normal affect Attitude: cooperative Thought process: Normal thought process present Thought content: Normal thought content present Insight: Fair insight present (Psych) Judgement: Fair judgement present (Psych) Results AMB Urinalysis, Automated UA Leukoctes 0 Arnold/uL Last Edit by [email or web address] on 10/06/23 10:15 UA Nitrite Negative Last Edit by [email or web address] on 10/06/23 10:15 UA Urobilinogen 0.2 mg/dL Last Edit by [email or web address] on 10/06/23 10:15 UA Protein 30 mg/dL Last Edit by [email or web address] on 10/06/23 10:15 UA pH 6.0 Last Edit by [email or web address] on 10/06/23 10:15 UA Blood 0 Aureliano/uL Last Edit by [email or web address] on 10/06/23 10:15 UA Specific [place] 1.020 Last Edit by [email or web address] on 10/06/23 10:15 UA Ketone Negative Last Edit by [email or web address] on 10/06/23 10:15 UA Bilirubin 0 mg/dL Last Edit by [email or web address] on 10/06/23 10:15 UA Glucose 0 mg/dL Last Edit by [email or web address] on 10/06/23 10:15 Results Reviewed Results Reviewed: Laboratory Last Values Urine pH (Auto) 6.0 10/06/23 09:58 Specific [place] (Auto) 1.020 10/06/23 09:58 Urine Protein (Auto) 30 mg/dL 10/06/23 09:58 Glucose (UA)(Auto) 0 mg/dL 10/06/23 09:58 Urine Ketones (Auto) Negative 10/06/23 09:58 Urine Blood (Auto) 0 Aureliano/uL 10/06/23 09:58 Urine Nitrite (Auto) Negative 10/06/23 09:58 Urine Bilirubin (Auto) 0 mg/dL 10/06/23 09:58 Urine Urobilinogen (Auto) 0.2 mg/dL 10/06/23 09:58 Leukocyte Esterase (Auto) 0 Arnold/uL 10/06/23 09:58 Date of Service: 09/28/23 EXAMINATION: US RETROPERITONEAL COMPLETE (RENAL) FINDINGS: RIGHT KIDNEY: 12.6 x 6.3 x 5.7 cm (SAG x AP x TRV). Right renal 0.5 cm upper pole calculus. No hydronephrosis. Renal cortical thickness is normal. Limited visualization. LEFT KIDNEY: 12.3 x 6.4 x 5 x 2.9 cm (SAG x AP x TRV). No hydronephrosis. No renal calculi. Renal cortical thickness is normal. Limited visualization. Left renal lower pole 1.6 x 1.4 x 1.7 cm cyst with benign features. There is no indication for follow-up imaging. BLADDER: Well-distended and unremarkable. Bilateral ureteral jets are demonstrated. Prevoid bladder volume is 380.0 mL. Postvoid bladder volume is 246.2 mL. ADDITIONAL FINDINGS: Enlarged prostate with volume 213.0 mL is very difficult to evaluate due to severely limited visualization and therefore these measurements are of limited accuracy. IMPRESSION: 1. Right renal 0.5 cm upper pole calculus. No hydronephrosis. 2. Post void bladder volume is 246.2 mL. 3. Enlarged prostate with volume 213.0 mL is very difficult to evaluate due to severely limited visualization and therefore these measurements are of limited accuracy. Assessment & Plan Assessment & Plan (1) Elevated PSA: Code(s): R97.20 - Elevated prostate specific antigen [PSA] (2) Enlarged prostate: Code(s): N40.0 - Benign prostatic hyperplasia without lower urinary tract symptoms (3) Nephrolithiasis: Code(s): N20.0 - Calculus of kidney (4) Incomplete bladder emptying: Code(s): R33.9 - Retention of urine, unspecified (5) Renal cyst: Code(s): N28.1 - Cyst of kidney, acquired Plan In office urinalysis results reviewed with the patient today; as noted above. Recent retroperitoneal ultrasound results reviewed with the patient today; as noted above. Recent PSA results reviewed with the patient today; as noted above. % free results pending Discussed at length potential causes of elevated PSA. Discussed incomplete bladder emptying; causes and effects. Discussed further treatment options with surveillance monitoring verses initiation of finasteride versus prostate MRI versus prostate biopsy; this was discussed at length as well as risks and benefits of these different treatment options. Discussed nephrolithiasis as well as renal cysts. Discussed, educated, encouraged on the importance of drinking plenty of water daily. Discussed adding 1 oz of lemon juice to water daily. Start terazosin 5 mg at bedtime as discussed and prescribed. Will await results of % free PSA at this time to further assess treatment options. Follow-up in 6 weeks with PVR; or sooner with any issues, concerns, and or questions. Orders: Orders AMB Urinalysis Automated Today Z13.9 - Encounter for screening, unspecified Medications: New terazosin 5 mg PO BEDTIME 30 days 30 caps 1RF N40.1 - Benign prostatic hyperplasia with lower urinary tract symptoms, R35.0 - Frequency of micturition Patient Instructions: The patient had an opportunity to ask questions regarding the treatment plan. All questions were answered. Physical exam, labs, and imaging were discussed and reviewed in detail. As well as risks, benefits, and discussion of treatment choices. No major barriers to understanding were identified. The patient expressed understanding and agreement with the above treatment plan. The patient was made aware they should contact our office by phone for worsening of their current condition, the appearance of new symptoms, or with any questions or concerns. Compliance is encouraged with any medications and follow up testing that is ordered. It is a privilege to be allowed the opportunity to participate in? your urological care.? Again, if you have any questions or concerns If you have any questions or concerns please do not hesitate to contact me. The office is [phone]. This note is constructed using voice recognition software. While every effort has been made to ensure accuracy store protection specialist errors may have been included. Yours sincerely, MARLON Jama Coding Level of Care Code Est Pt Level 4 (66250) Diagnoses Elevated PSA R97.20 Enlarged prostate N40.0 Nephrolithiasis N20.0 Incomplete bladder emptying R33.9 Renal cyst N28.1
== END 2023-10-06 10:55 | disposition home or self-care (01) ==
PROVIDERS: PCP Family Medicine; Visit Provider Nurse Practitioner Family
DX: R97.20 Elevated prostate specific antigen [PSA] (principal); N40.0 Benign prostatic hyperplasia without lower urinary tract symptoms; N20.0 Calculus of kidney; R33.9 Retention of urine, unspecified; N28.1 Cyst of kidney, acquired
CPT/HCPCS: 99214

== ENCOUNTER → 2023-10-06 09:51 | Outpatient (BNVA) | payer MEDICARE, SELFPAY | PROVIDERS: PCP Family Medicine; Visit Provider Nurse Practitioner Family | DX: N40.0 Benign prostatic hyperplasia without lower urinary tract symptoms (principal); N20.0 Calculus of kidney; N28.1 Cyst of kidney, acquired; R33.9 Retention of urine, unspecified; R97.20 Elevated prostate specific antigen [PSA] | CPT/HCPCS: 81003; 99212 ==

== ENCOUNTER 2023-12-15 10:41 | Outpatient (AMB) | payer MEDICARE, SELFPAY ==
--- NOTE | 2023-12-15 10:51 | A.OFFVIS_ITS ---
Intake Intake Visit Reasons: 3m follow up Intake Note: Patient presents today for a follow-up on PSA Meds- Finasteride, Terazosin Allergies to Antibiotic- None Allergies to Aspirin Blood Thinner- Clopidogrel Post Void Residual:0 Pickle Cutter Required: No Accompanied by: Self / Same As Patient Allergies aspirin Allergy (Mild, Verified 12/15/23 11:04) swelling Medication List - Last Reconciled 12/15/23 by MARY Jama-DORA cetirizine (All Day Allergy (cetirizine)) 10 mg PO DAILY PRN 90 days clopidogrel 75 mg PO DAILY 90 days diphenhydramine HCl 2% (Benadryl) 1 appl topical TID PRN 14 days finasteride 5 mg PO DAILY 90 days fluticasone propionate 50 mcg/actuation (Flonase Allergy Relief) 1 spray intranasal Q12H 30 days ketoconazole 2% 1 appl topical DAILY 30 days lisinopril 2.5 mg PO DAILY 30 days metformin 250 mg (1/2 x 500 mg) PO BID 90 days metoprolol succinate ER 25 mg PO DAILY 90 days simvastatin 20 mg PO BEDTIME 90 days terazosin 5 mg PO BEDTIME 30 days HPI HPI Comments History of Present Illness Details Gilberto is a very pleasant 77-year-old male patient of . He has a past medical history of hypertension, hyperlipidemia, diabetes, and seasonal allergies. He presents to the office today for follow-up of his elevated PSA and lower urinary tract symptoms. In discussion with the patient today he reports to be doing and feeling well. Previous workup has included a retroperitoneal ultrasound noting right kidney with 0.5 cm upper pole calculus. No hydronephrosis noted. Left kidney with no hydronephrosis or calculi noted. Left renal lower pole 1.6 x 1.4 x 1.7 cm cyst with benign features. There is no indication for follow-up imaging per radiology report. The bladder is well distended and unremarkable. Bilateral ureteral jets are demonstrated. Pre void bladder volume is approximately 380 mL. Postvoid bladder volume is approximately 250 mL. The prostate is enlarged with a volume of approximately 215 mL however it is very difficult to evaluate due to severely limited visualization and therefore these measurements are limited to accuracy per radiology report. He has a previous hx of a TURP in 2004 in [facility]. PSAs are as follows: 03/30-2.9 07/01--4.6 10/01--6.2 percent free:22% He reports noting significant improvement in urinary frequency with 5 mg of terazosin daily. He reports compliance with finasteride 5 mg daily. He currently denies any bothersome urinary issues or concerns. In office urinalysis results reviewed with the patient today. PVR 0 mL. Discussed obtaining redraw of PSA in 2 months given history of elevation of PSA and is on Finasteride. When asked he denies urinary urgency, urinary frequency, incontinence, nocturia, hematuria, dysuria, foul smelling urine, changes to urinary stream, flank pain, fever, and or chills. He is happy with his current voiding parameters. He otherwise offers no other issues or concerns at this time. FORMERLY [facility] Medical History Diabetes Hyperlipidemia Hypertension Deviated septum Surgical History H/O transurethral resection of prostate H/O right inguinal hernia repair Social History Housing: House Patient Tobacco Use Status: Never used Tobacco e-Cigarette/Vaping Use: Never Used Second Hand Smoke Exposure: No service: No Current occupational status: retired Current occupational exposures/hazards: No Cognitive needs: No Hearing needs: No Vision needs: No Review of Systems Const All systems reviewed & are unremarkable except as noted in HPI and below Eyes Reports no additional complaints ENT Reports no additional complaints Card Reports as per HPI Resp Reports no additional complaints GI Reports no additional complaints Reports as per HPI Musc Reports no additional complaints Neuro Reports no additional complaints Psych Reports no additional complaints Endo Reports as per HPI Osei/Lymph Reports no additional complaints Aller/Immun Reports as per HPI Physical Exam Const General: cooperative, healthy appearing, comfortable, no acute distress, well developed, alert and awake Nutritional Appearance: overweight Orientation/consciousness: patient oriented x3 Limitations: no limitations HEENT Head: Yes normal to inspection, Yes normocephalic and Yes atraumatic Ears: hearing grossly normal bilaterally Eyes General: appearance normal, both eyes and all related structures Neck Neck: Yes normal visual inspection and Yes trachea midline Chest Chest palpation & inspection: normal inspection of the chest Resp Effort & Inspection: normal respiratory effort and able to speak in complete sentences Cardio Rate: regular rate GI Inspection: Yes normal to inspection General: Yes no CVA tenderness Back/Spine/Pelvis Back: no CVA tenderness Skin General skin exam: no rashes or lesions noted Neuro General: patient oriented x3 Extrem General: Yes normal to inspection Psych Appearance: grossly normal and well kempt Mental Status: mental status grossly normal Speech and movement: Normal speech and movement present and Clear speech present Affect: normal affect Attitude: cooperative Thought process: Normal thought process present Thought content: Normal thought content present Insight: Fair insight present (Psych) Judgement: Fair judgement present (Psych) Office Procedures Post Void Residual Post Residual Void Post Void Residual (PVR): 0 [id number] Void Residual by ultrasound Results AMB Urinalysis, Automated UA Leukoctes 0 Arnold/uL Last Edit by Diana Laguna CMA on 12/15/23 11 :00 UA Nitrite Negative Last Edit by Diana Laguna CMA on 12/15/23 11: 00 UA Urobilinogen 0.2 mg/dL Last Edit by Diana Laguna CMA on 4 11:00 UA Protein 15 mg/dL Last Edit by Diana Laguna [facility] on 12/15/23 11:0 0 UA pH 6.0 Last Edit by Diana Laguna [facility] on 12/15/23 11:00 UA Blood 0 Aureliano/uL Last Edit by Diana Laguna [facility] on 12/15/23 11:00 UA Specific [place] 1.030 Last Edit by Diana Laguna [facility] on 11:00 UA Ketone Negative Last Edit by Diana Laguna CMA on 12/15/23 11:0 0 UA Bilirubin 0 mg/dL Last Edit by Diana Laguna [facility] on 12/15/23 11: 00 UA Glucose 0 mg/dL Last Edit by Diana Laguna CMA on 12/15/23 11:00 Assessment & Plan Assessment & Plan (1) Elevated PSA: Code(s): R97.20 - Elevated prostate specific antigen [PSA] (2) Incomplete bladder emptying: Code(s): R33.9 - Retention of urine, unspecified (3) Nephrolithiasis: Code(s): N20.0 - Calculus of kidney (4) Enlarged prostate: Code(s): N40.0 - Benign prostatic hyperplasia without lower urinary tract symptoms (5) Renal cyst: Code(s): N28.1 - Cyst of kidney, acquired (6) Urinary frequency: Code(s): R35.0 - Frequency of micturition Plan In office urinalysis results reviewed with the patient today; as noted above PVR 0 mL. Continue finasteride and terazosin 5 mg daily as discussed and prescribed; refills provided Will continue with surveillance monitoring of nephrolithiasis and renal cyst. Will obtain PSA in 2 months. Discussed at length potential causes for elevated PSA; discussed further workup versus continuation of finasteride. Patient currently denies any bothersome urinary issues or concerns He is happy with his current voiding parameters. Follow-up in 2 months with lab to be completed prior; or sooner with any issues, concerns, or questions. Orders: Orders AMB Urinalysis Automated Today R33.9 - Retention of urine, unspecified AMB Post Void Residual by ultrasound Today R33.9 - Retention of urine, unspecified Prostate Specific Antigen 2 Months R97.20 - Elevated prostate specific antigen [PSA] Medications: Changed From terazosin 5 mg PO BEDTIME 30 days 30 caps 1RF N40.1 - Benign prostatic hyperplasia with lower urinary tract symptoms, R35.0 - Frequency of micturition To terazosin 5 mg PO BEDTIME 90 caps 3RF 90 days N40.1 - Benign prostatic hyperplasia with lower urinary tract symptoms, R35.0 - Frequency of micturition Refilled finasteride 5 mg PO DAILY 90 tabs 3RF 90 days N40.0 - Benign prostatic hyperplasia without lower urinary tract symptoms Patient Instructions: The patient had an opportunity to ask questions regarding the treatment plan. All questions were answered. Physical exam, labs, and imaging were discussed and reviewed in detail. As well as risks, benefits, and discussion of treatment choices. No major barriers to understanding were identified. The patient expressed understanding and agreement with the above treatment plan. The patient was made aware they should contact our office by phone for worsening of their current condition, the appearance of new symptoms, or with any questions or concerns. Compliance is encouraged with any medications and follow up testing that is ordered. It is a privilege to be allowed the opportunity to participate in? your urological care.? Again, if you have any questions or concerns If you have any questions or concerns please do not hesitate to contact me. The office is [phone]. This note is constructed using voice recognition software. While every effort has been made to ensure accuracy forensics analyst errors may have been included. Yours sincerely, MARLON Jama Coding Level of Care Code Est Pt Level 3 (81022) Diagnoses Elevated PSA R97.20 Incomplete bladder emptying R33.9 Nephrolithiasis N20.0 Enlarged prostate N40.0 Renal cyst N28.1 Urinary frequency R35.0 CPT Codes Post Residual Void - PVR CPT Code: 68862-Vmtp Void Residual by ultrasound ([id number])
== END 2023-12-15 11:03 | disposition home or self-care (01) ==
LOC: HO.HUSH 10:41
PROVIDERS: PCP Family Medicine; Visit Provider Nurse Practitioner Family
DX: R97.20 Elevated prostate specific antigen [PSA] (principal); R33.9 Retention of urine, unspecified; N20.0 Calculus of kidney; N40.0 Benign prostatic hyperplasia without lower urinary tract symptoms; N28.1 Cyst of kidney, acquired; R35.0 Frequency of micturition
CPT/HCPCS: 99213

== ENCOUNTER → 2023-12-15 10:41 | Outpatient (BNVA) | payer MEDICARE, SELFPAY | PROVIDERS: PCP Family Medicine; Visit Provider Nurse Practitioner Family | DX: R97.20 Elevated prostate specific antigen [PSA] (principal); N40.1 Benign prostatic hyperplasia with lower urinary tract symptoms; R33.9 Retention of urine, unspecified; R35.0 Frequency of micturition; N20.0 Calculus of kidney; N28.1 Cyst of kidney, acquired | CPT/HCPCS: 51798; 81003; 99212 ==

== ENCOUNTER 2024-01-14 10:26 | Outpatient (AMB) | payer MEDICARE, SELFPAY ==
[2024-01-14 10:32] VITALS: BP 142/78; PULSE 58; O2SAT 97; BMI 37.6
--- NOTE | 2024-01-14 10:32 | A.OFFPC_ITS ---
Vital Signs 01/14/24 10:32 Height 5 ft 11 in Weight 269 lb 8 oz BMI 37.6 BP 142/78 H Blood Pressure Location Lt brachial Position Sitting Pulse 58 Pulse Source Pulse Oximeter Pulse Oximetry (%) 97 Oxygen Delivery Method Room Air Intake Visit Reasons: f/u HLD, DM & HTN with?microalbuminuria Allergies aspirin Allergy (Mild, Verified 12/15/23 11:04) swelling Tobacco use date assessed: 06/30/23 Fall risk assessment: No Falls in past year Last assessed Fall Risk: 01/14/24 Dental Screening Dental Screen Date: 01/14/24 Did you have a dental visit in the last 12 months?: Yes Did you have a dental problem in the last 6 months where you did not have access to dental care?: No Was dental information given to patient?: Patient has dentist HPI f/u HLD, DM & HTN with?microalbuminuria HPI Details 78 y/o male presents to f/u HLD, DM, HTN with microalbuminuria. Last A1c 09/28/23 6.9%. A1c today 01/14/24 is 7.1%. He is on metformin 250mg b.i.d. Labs were drawn 10/05/23. Reviewed labs with pt. Elevated liver enzymes - AST 43 and ALT 41. Triglycerides 331. TC 206. LDL 104. HDL low at 36. He is on simvastatin 20mg. Total PSA elevated at 6.18. Had seen urology and had started him on finasteride, terazosin. Denies any problems with his meds. Microalb/Creat ratio 110.1. Blood pressure today elevated at 142/78. He reports he is not feeling well today with a ? viral illness. HPI Comments History of Present Illness Details Documentation assistance for Kartik Khoury MD, was provided by Wolfgang De Jesus,? Throat Cutter on 01/14/2024 11:00 AM EST. I, Dr. Khoury, have read, observed, and verified documentation. [facility] Medical History Diabetes Hyperlipidemia Hypertension Deviated septum Surgical History H/O transurethral resection of prostate H/O right inguinal hernia repair Social History (Reviewed 12/15/23 @ 10:57 by DONELL Esquivel Housing: House Patient Tobacco Use Status: Never used Tobacco e-Cigarette/Vaping Use: Never Used Second Hand Smoke Exposure: No service: No Current occupational status: retired Current occupational exposures/hazards: No Cognitive needs: No Hearing needs: No Vision needs: No Questionnaire PHQ-9 Over the last 2 weeks, how often have you been bothered by any of the following problems? 1. Little interest or pleasure in doing things: not at all 2. Feeling down, depressed, or hopeless: not at all 3. Trouble falling or staying asleep, or sleeping too much: not at all 4. Feeling tired or having little energy: not at all 5. Poor appetite or overeating: not at all 6. Feeling bad about yourself - or that you are a failure or have let yourself or your family down: not at all 7. Trouble concentrating on things, such as reading the newspaper or watching television: not at all 8. Moving or speaking so slowly that other people could have noticed. Or the opposite - being so fidgety or restless that you have been moving around a lot more than usual: not at all 9. Thoughts that you would be better off or of hurting yourself in some way: not at all Total score: 0 Depression Screening Interpretation: Negative Depression Screening Done: Yes 24295 - PHQ-9 Billing: Yes Source: Developed by Drs. Randall Ya, Monet Callejas, Darrell Harmon and colleagues, with an educational елена from [employer]. Thrive Questionnaire Date Thrive assessed: 01/14/24 I am a: Patient What is your living situation today?: I have a steady place to live Within the past 12 months, did the food you bought not last and you didn't have the money to get more?: Never true Within the past 12 months, did you worry whether your food would run out before you got money to buy more?: Never true Do you have trouble paying for medicines?: No Do you have trouble getting transportation to medical appointments?: No Do you have trouble paying your heating and electricity bill?: No Do you have trouble taking care of your child, family member or friend?: No Do you have trouble with day-to-day activities such as bathing, preparing meals, shopping, managing finances, etc.?: No Are you currently unemployed and looking for a job?: No Are you interested in more education?: No THRIVE Score: 0 AUDIT C Alcohol Use Questionnaire (AUDIT-C) 1. How often do you have a drink containing alcohol?: Monthly or less 2. How many drinks containing alcohol do you have on a typical day when you are drinking?: 1 or 2 3. How often do you have six or more drinks on one occasion?: Never Total Score: 1 RADHA-7 AMB Questionnaire RADHA-7 Date RADHA - 7 assessed: 01/14/24 Feeling nervous, anxious, or on edge: 0 = Not at all Not being able to stop or control worryin = Not at all Worrying too much about different things: 0 = Not at all Trouble relaxin = Not at all Being so restless that it is hard to sit still: 0 = Not at all Becoming easily annoyed or irritable: 0 = Not at all Feeling afraid as if something awful might happen: 0 = Not at all Total RADHA-7 score (0-4 normal; 5-9 mild; 10-14 moderate; 15-21 severe): 0 Source: Developed by Drs. Randall Ya, Monet Callejas, Darrell Harmon and colleagues, with an educational елена from [employer]. RADHA-7 Assessment Billing RADHA-7 Assessment Tool: RADHA-7 Assessment 98545 Review of Systems Const Denies chills, Denies fatigue, Denies fever(s), Denies headache(s) and Denies weakness ENT Denies dizziness and Denies headache(s) Card Denies chest pain, Denies lightheadedness, Denies dyspnea and Denies other (Palpitations) Resp Denies cough, Denies dyspnea, Denies wheezing and Denies other ( shortness of breath) Musc Denies numbness and Denies tingling Neuro Denies dizziness, Denies headache(s), Denies numbness, Denies tingling, Denies paresthesias and Denies weakness Psych Denies anxiety and Denies depression Endo Denies fatigue Aller/Immun Denies wheezing Physical exam (Primary Care) Vital Signs: Last Vital Signs Pulse 58 01/14/24 10:32 BP 142/78 H 01/14/24 10:32 Pulse Ox 97 01/14/24 10:32 Oxygen Delivery Method Room Air 01/14/24 10:32 BMI result Body Mass Index 37.6 Tobacco/Smoking Status: Tobacco use Status Tobacco use date assessed 06/30/23 01/14/24 10:40 Patient Tobacco Use Status Never used Tobacco 01/14/24 10:40 e-Cigarette/Vaping Use Never Used 01/14/24 10:40 PHQ-9: PHQ-9 Score PHQ-9: Total score 0 01/14/24 10:44 Depression Screening Interpretation: Negative Thrive Assessment: Date of Thrive Assessment Date Thrive assessed 01/14/24 01/14/24 10:43 Const General: no acute distress and well developed Nutritional Appearance: well nourished Orientation/consciousness: patient oriented x3 HENMT Head: Yes normocephalic and Yes atraumatic Eyes General: appearance normal, both eyes and all related structures Pupils: Equal, round and reactive pupils present EOM: EOMs intact bilaterally Resp Other: Mucuous secretions Effort & Inspection: normal respiratory effort Auscultation: clear to auscultation bilaterally Cardio Rate: regular rate Rhythm: regular rhythm Heart sounds: S1 normal heart sound present, S2 normal heart sound present, no gallops, no murmurs and no rubs Neuro General: patient oriented x3 and gait normal Cranial nerves: Yes Equal, round and reactive pupils present Psych Affect: normal affect Assessment and Plan Assessment & Plan (1) Diabetes: Code(s): E11.9 - Type 2 diabetes mellitus without complications Plan: A1c?today?has?climbed?again?and?now?at?7.1%. Patient?notes?that?he?stopped?metformin?while?he?has?been?sick? for?the?past?week. We?discussed?that?that?might?be?a?small?contributor?but?that?he?needs?to?work?on ?lifestyle?changes?and?take?his?medication?more?consistently. We?discussed?that?if?his?A1c?is?not?aubrey k?at?goal?with?our?next?Check,?we?should?adjust?his?medication (2) Hypertension: Code(s): I10 - Essential (primary) hypertension Plan: Blood?pressure?is?a?little?elevated?but?has?been?fairly?consistently?controlled? at?recent?visits. Patient?notes?that?he?is?sick?today He?has?lost?over?10?lb. Encouraged?ongoing?weight?loss Continue?lisinopril (3) Hyperlipidemia: Code(s): E78.5 - Hyperlipidemia, unspecified Plan: He?is?on?simvastatin?20?mg?daily LDL?cholesterol?slightly?above?goal?of?less?than?100?for?patient?with?diabetes. He?has?lost?over?10?lb Encouraged?ongoing?weight?loss?and?exercise?as?tolerated (4) Microalbuminuria: Code(s): R80.9 - Proteinuria, unspecified Plan: Will?recheck?with?next?set?of?labs (5) Elevated liver enzymes: Code(s): R74.8 - Abnormal levels of other serum enzymes (6) Elevated PSA: Code(s): R97.20 - Elevated prostate specific antigen [PSA] Plan: PSA?level?was?elevated?and?he?is?now?followed?by?Urology. Likely?BPH?and?he?is?on?finasteride?and?tamsulosin.??Tolerating?these?well. Follow-up?with?urology?as?recommended (7) Viral illness: Code(s): B34.9 - Viral infection, unspecified Plan: Likely?viral?illness. He?feels?this?is?beginning?to?improve. No?indication?for?antibiotics He?will?try?Mucinex. Call?or?return?to?office?if?not?improving?or?worsening. Would?consider?chest?x-ray?and?re-evaluation?for?antibiotic?therapy. Increase?hydration?and?rest. Orders: Orders Microalbumin, Random (w Creat) Today I10 - Essential (primary) hypertension Comprehensive [place]. Panel Fast Today E11.9 - Type 2 diabetes mellitus without complications, Z00.00 - Encounter for general adult medical examination without abnormal findings Lipid Panel Today E78.5 - Hyperlipidemia, unspecified, Z00.00 - Encounter for general adult medical examination without abnormal findings Coding Level of Care Code Est Pt Level 4 (70438) Diagnoses Diabetes E11.9 Hypertension I10 Hyperlipidemia E78.5 Microalbuminuria R80.9 Elevated liver enzymes R74.8 Elevated PSA R97.20 Viral illness B34.9 Additional Codes RADHA-7 Assessment Billing - RADHA-7 Assessment Tool: RADHA-7 Assessment 11707 ([id number])
== END 2024-01-14 11:13 | disposition home or self-care (01) ==
PROVIDERS: PCP Family Medicine; Visit Provider Family Medicine
DX: E11.69 Type 2 diabetes mellitus with other specified complication (principal); I10 Essential (primary) hypertension; E78.5 Hyperlipidemia, unspecified; R80.9 Proteinuria, unspecified; R74.8 Abnormal levels of other serum enzymes; R97.20 Elevated prostate specific antigen [PSA]; B34.9 Viral infection, unspecified
CPT/HCPCS: 83036; 99214

== ENCOUNTER 2024-02-10 07:20 | Outpatient (REF) | payer MEDICARE, SELFPAY ==
[2024-02-10 11:50] LABS: Alanine Aminotransferase 38 U/L (0-40); Albumin Level 3.8 g/dL (3.5-5.0); Alkaline Phosphatase 64 U/L (39-117); Anion Gap 13 (12-20); Aspartate Amino Transferase 26 U/L (5-37); Blood Urea Nitrogen 17 mg/dL (9-16); Carbon Dioxide 24 mmol/L (22-29); Chloride 106 mmol/L (96-108); Cholesterol 199 mg/dL (<200); Estimated Glomerular Filt Rate > 60; Glucose Fasting 130 mg/dL (60-99); HDL Cholesterol 39 mg/dL (>40); LDL Cholesterol Calculated 119 mg/dL (<100); Potassium 4.2 mmol/L (3.3-5.1); Sodium 139 mmol/L (135-145); Total Protein 6.8 g/dL (6.5-8.0); Triglycerides 209 mg/dL (<150)
[2024-02-10 12:14] LABS: Microalbum/Creatinine Ratio Ur 19.8 ug/mg cr (<30)
[2024-02-10 12:28] LABS: Prostate Specific Antigen 2.22 ng/mL (<0.05-4.0)
== END 2024-02-10 07:21 | disposition home or self-care (01) ==
LOC: HO.WFDLDS 07:20
PROVIDERS: Nurse Practitioner Family; Visit Provider Family Medicine
DX: Z00.00 Encounter for general adult medical examination without abnormal findings (principal); E11.9 Type 2 diabetes mellitus without complications; I10 Essential (primary) hypertension; R97.20 Elevated prostate specific antigen [PSA]
CPT/HCPCS: 36415; 80053; 80061; 82043; 82570; 84153

== ENCOUNTER 2024-02-15 08:41 | Outpatient (AMB) | payer MEDICARE, SELFPAY ==
--- NOTE | 2024-02-15 08:41 | A.OFFVIS_ITS ---
Intake Intake Visit Reasons: 2m/PSA(set) Intake Note: Patient presents today for tele visit follow-up on PSA Urology Medications: Finasteride, Terazosin Blood Thinner- Clopidogrel Roll Forming Machine Operator Required: No Accompanied by: Self / Same As Patient Allergies aspirin Allergy (Mild, Verified 02/15/24 08:57) swelling Medication List - Last Reconciled 02/15/24 by EM JamaP- cetirizine (All Day Allergy (cetirizine)) 10 mg PO DAILY PRN 90 days clopidogrel 75 mg PO DAILY 90 days diphenhydramine HCl 2% (Benadryl) 1 appl topical TID PRN 14 days finasteride 5 mg PO DAILY 90 days fluticasone propionate 50 mcg/actuation (Flonase Allergy Relief) 1 spray intranasal Q12H 30 days guaifenesin ER (Mucinex) 600 mg PO Q12H PRN 5 days ketoconazole 2% 1 appl topical DAILY 30 days lisinopril 2.5 mg PO DAILY 30 days metformin 250 mg (1/2 x 500 mg) PO BID 90 days metoprolol succinate ER 25 mg PO DAILY 90 days simvastatin 20 mg PO BEDTIME 90 days terazosin 5 mg PO BEDTIME 90 days HPI HPI Comments History of Present Illness Details Gilberto is a very pleasant 78-year-old male patient of Dr. Khoury. He has a past medical history of hypertension, hyperlipidemia, diabetes, and seasonal allergies. He presents to the office today for follow-up of his elevated PSA and lower urinary tract symptoms. In discussion with the patient today he reports to be doing and feeling well. Recent PSA results reviewed with the patient today. As noted and trended below. Previous workup has included a retroperitoneal ultrasound noting right kidney with 0.5 cm upper pole calculus. No hydronephrosis noted. Left kidney with no hydronephrosis or calculi noted. Left renal lower pole 1.6 x 1.4 x 1.7 cm cyst with benign features. There is no indication for follow-up imaging per radiology report. The bladder is well distended and unremarkable. Bilateral ureteral jets are demonstrated. Pre void bladder volume is approximately 380 mL. Postvoid bladder volume is approximately 250 mL. The prostate is enlarged with a volume of approximately 215 mL however it is very difficult to evaluate due to severely limited visu alization and therefore these measurements are limited to accuracy per radiology report. He has a previous hx of a TURP in 2004 in [facility]. PSAs are as follows: 03/30-2.9 07/01--4.6 10/01--6.2 percent free:22% 03/02--2.2 He reports noting significant improvement in urinary frequency and nocturia with 5 mg of terazosin daily. He reports he is sleeping approximately 8-9 hours per night without interruption. He reports compliance with finasteride 5 mg daily. He currently denies any bothersome urinary issues or concerns. When asked he denies urinary urgency, urinary frequency, incontinence, nocturia, hematuria, dysuria, foul smelling urine, changes to urinary stream, flank pain, fever, and or chills. He is happy with his current voiding parameters. He otherwise offers no other issues or concerns at this time. [facility] Medical History Diabetes Hyperlipidemia Hypertension Deviated septum Surgical History H/O transurethral resection of prostate H/O right inguinal hernia repair Social History Housing: House Patient Tobacco Use Status: Never used Tobacco e-Cigarette/Vaping Use: Never Used Second Hand Smoke Exposure: No service: No Current occupational status: retired Current occupational exposures/hazards: No Cognitive needs: No Hearing needs: No Vision needs: No Review of Systems Const All systems reviewed & are unremarkable except as noted in HPI and below Eyes Reports no additional complaints ENT Reports no additional complaints Card Reports as per HPI Resp Reports no additional complaints GI Reports no additional complaints Reports as per HPI Musc Reports no additional complaints Neuro Reports no additional complaints Psych Reports no additional complaints Endo Reports as per HPI Osei/Lymph Reports no additional complaints Aller/Immun Reports as per HPI Physical Exam Const General: cooperative Resp Effort & Inspection: able to speak in complete sentences Psych Speech and movement: Clear speech present Attitude: cooperative Thought process: Normal thought process present Thought content: Normal thought content present Insight: Fair insight present (Psych) Judgement: Fair judgement present (Psych) Assessment & Plan Assessment & Plan (1) Enlarged prostate: Code(s): N40.0 - Benign prostatic hyperplasia without lower urinary tract symptoms (2) Elevated PSA: Code(s): R97.20 - Elevated prostate specific antigen [PSA] Plan Recent PSA results reviewed with the patient today; as noted above. Continue finasteride 5 mg daily and terazosin as discussed and prescribed. Patient currently denies any bothersome urinary issues or concerns. He is happy with his current voiding parameters. Will obtain PSA in 6 months. Follow-up in 6 months with lab to be completed prior; or sooner with any issues, concerns, and or questions. Orders: Orders Prostate Specific Antigen 6 Months N40.0 - Benign prostatic hyperplasia without lower urinary tract symptoms Patient Instructions: The patient had an opportunity to ask questions regarding the treatment plan. All questions were answered. Physical exam, labs, and imaging were discussed and reviewed in detail. As well as risks, benefits, and discussion of treatment choices. No major barriers to understanding were identified. The patient expressed understanding and agreement with the above treatment plan. The patient was made aware they should contact our office by phone for worsening of their current condition, the appearance of new symptoms, or with any questions or concerns. Compliance is encouraged with any medications and follow up testing that is ordered. It is a privilege to be allowed the opportunity to participate in? your urological care.? Again, if you have any questions or concerns If you have any questions or concerns please do not hesitate to contact me. The office is [phone]. This note is constructed using voice recognition software. While every effort has been made to ensure accuracy bridge repair crew person errors may have been included. Yours sincerely, Renuka Adair [facility] Telehealth Telehealth Location of provider rendering services: practice address Location of patient: address on file Patient Identification confirmed using: Name, : Yes Telehealth method: voice only Patient verbally consented to treatment: Yes Patient verbally consented to billing insurance company: Yes Patient informed of any privacy concerns related to visit: Yes Coding Level of Care Code Tele Est Pt Level 3 (63331) Diagnoses Enlarged prostate N40.0 Elevated PSA R97.20
== END 2024-02-15 09:15 | disposition home or self-care (01) ==
LOC: HO.HUSH 08:41
PROVIDERS: PCP Family Medicine; Visit Provider Nurse Practitioner Family
DX: N40.0 Benign prostatic hyperplasia without lower urinary tract symptoms (principal); R97.20 Elevated prostate specific antigen [PSA]
CPT/HCPCS: 99442

== ENCOUNTER → 2024-02-15 08:41 | Outpatient (BNVA) | payer MEDICARE, SELFPAY | PROVIDERS: PCP Family Medicine; Visit Provider Nurse Practitioner Family ==

== ENCOUNTER 2024-09-12 08:55 | Outpatient (REF) | payer MEDICARE, SELFPAY ==
[2024-09-12 11:55] LABS: Appearance Urine Clear; Color Urine Yellow; Glucose Urine UA Negative (Negative); Leukocyte Esterase Urine Negative (Negative); Nitrite Urine Negative (Negative); PH 5.5 (5.0-9.0); Urine Blood Negative (Negative); Urine Ketones Negative (Negative); Urine Protein Negative (Neg-Trace)
[2024-09-12 12:30] LABS: Creatinine Urine 108.49 mg/dL; Microalbum/Creatinine Ratio Ur 33.1 ug/mg cr (<30)
[2024-09-12 12:48] LABS: Alanine Aminotransferase 37 U/L (0-40); Alkaline Phosphatase 61 U/L (39-117); Anion Gap 16 (12-20); Aspartate Amino Transferase 28 U/L (5-37); Bilirubin Total 1.2 mg/dL (0.0-1.0); Blood Urea Nitrogen 15 mg/dL (9-16); Calcium 9.7 mg/dL (8.4-10.2); Carbon Dioxide 24 mmol/L (22-29); Chloride 105 mmol/L (96-108); Cholesterol 196 mg/dL (<200); Estimated Glomerular Filt Rate > 60; Glucose Fasting 146 mg/dL (60-99); HDL Cholesterol 39 mg/dL (>40); LDL Cholesterol Calculated 107 mg/dL (<100); Potassium 4.6 mmol/L (3.3-5.1); Sodium 140 mmol/L (135-145); Total Protein 6.9 g/dL (6.5-8.0); Triglycerides 250 mg/dL (<150)
[2024-09-12 13:09] LABS: Prostate Specific Antigen 2.58 ng/mL (<0.05-4.0)
== END 2024-09-12 08:56 | disposition home or self-care (01) ==
LOC: HO.WFDLDS 08:55
PROVIDERS: Referring Provider Nurse Practitioner Family; Visit Provider Family Medicine
DX: Z00.00 Encounter for general adult medical examination without abnormal findings (principal); N40.0 Benign prostatic hyperplasia without lower urinary tract symptoms; I10 Essential (primary) hypertension; Z12.5 Encounter for screening for malignant neoplasm of prostate
CPT/HCPCS: 36415; 80053; 80061; 81003; 82043; 82570; 84153

== ENCOUNTER 2024-11-08 07:38 | Outpatient (AMB) | payer MEDICARE, SELFPAY ==
--- NOTE | 2024-11-08 07:38 | A.OFFVIS_ITS ---
Intake Visit Reasons: follow up psa lab(set) Intake Note: Patient presents today for tele visit follow-up on PSA PSA: 2.58 Urology Medications: Finasteride, Terazosin Blood Thinner- Clopidogrel [employer] Display Builder Required: No Accompanied by: Self / Same As Patient Allergies aspirin Allergy (Mild, Verified 11/08/24 08:07) swelling Medication List - Last Reconciled 11/08/24 by MARLON Jama cetirizine (All Day Allergy (cetirizine)) 10 mg PO DAILY PRN 90 days clopidogrel 75 mg PO DAILY 90 days diphenhydramine HCl 2% (Benadryl) 1 appl topical TID PRN 14 days finasteride 5 mg PO DAILY 90 days fluticasone propionate 50 mcg/actuation (Flonase Allergy Relief) 1 spray intranasal Q12H 30 days guaifenesin ER (Mucinex) 600 mg PO Q12H PRN 5 days ketoconazole 2% 1 appl topical DAILY 30 days lisinopril 2.5 mg PO DAILY 90 days metformin 250 mg (1/2 x 500 mg) PO BID 90 days metoprolol succinate ER 25 mg PO DAILY 90 days simvastatin 20 mg PO BEDTIME 90 days terazosin 5 mg PO BEDTIME 90 days HPI Comments Details: Gilberto is a very pleasant 78-year-old male patient of Dr. Khoury. He has a past medical history of hypertension, hyperlipidemia, diabetes, and seasonal allergies. He presents to the office today for follow-up of his elevated PSA and lower urinary tract symptoms. In discussion with the patient today he reports to is being followed up on today via telehealth. In discussion with the patient today he reports to be doing and feeling well. He denies any bothersome urinary issues or concerns. Reports compliance with terazosin and finasteride as prescribed. Recent PSA results reviewed with the patient today as noted and trended below. Previous workup has included a retroperitoneal ultrasound noting right kidney with 0.5 cm upper pole calculus. No hydronephrosis noted. Left kidney with no hydronephrosis or calculi noted. Left renal lower pole 1.6 x 1.4 x 1.7 cm cyst with benign features. There is no indication for follow-up imaging per radiology report. The bladder is well distended and unremarkable. Bilateral ureteral jets are demonstrated. Pre void bladder volume is approximately 380 mL. Postvoid bladder volume is approximately 250 mL. The prostate is enlarged with a volume of approximately 215 mL however it is very difficult to evaluate due to severely limited visualization and therefore these measurements are limited to accuracy per radiology report. He has a previous hx of a TURP in 2004 in [facility]. PSAs are as follows: 03/30 2.9, 07/01 4.6, 10/01 6.2 percent free:22%, 03/02 2.2, 10/02 2.6 He reports noting significant improvement in urinary frequency and nocturia with 5 mg of terazosin daily. He denies urinary urgency, urinary frequency, incontinence, nocturia, hematuria, dysuria, foul smelling urine, changes to urinary stream, flank pain, fever, and or chills. He is happy with his current voiding parameters. He otherwise offers no other issues or concerns at this time. [facility] Medical History Diabetes Hyperlipidemia Hypertension Deviated septum Surgical History H/O transurethral resection of prostate H/O right inguinal hernia repair Social History Housing: House Patient Tobacco Use Status: Never used Tobacco e-Cigarette/Vaping Use: Never Used Second Hand Smoke Exposure: No service: No Current occupational status: retired Current occupational exposures/hazards: No Cognitive needs: No Hearing needs: No Vision needs: No Review of Systems Const All systems reviewed & are unremarkable except as noted in HPI and below Eyes Reports no additional complaints ENT Reports no additional complaints Card Reports as per HPI Resp Reports no additional complaints GI Reports no additional complaints Reports as per HPI Musc Reports no additional complaints Neuro Reports no additional complaints Psych Reports no additional complaints Endo Reports as per HPI Osei/Lymph Reports no additional complaints Aller/Immun Reports as per HPI Physical Exam Const General: cooperative Resp Effort & Inspection: able to speak in complete sentences Psych Attitude: cooperative Thought process: Normal thought process present Thought content: Normal thought content present Insight: Fair insight present (Psych) Judgement: Fair judgement present (Psych) Telehealth Telehealth Telehealth Platform: Telephone Location of provider rendering services: practice address Location of patient: address on file Patient Identification confirmed using: Name, : Yes Telehealth method: voice only Patient verbally consented to treatment: Yes Patient verbally consented to billing insurance company: Yes Patient informed of any privacy concerns related to visit: Yes Minutes spent on Phone/Video with Pt.: 15 Assessment & Plan Assessment & Plan (1) Enlarged prostate: Code(s): N40.0 - Benign prostatic hyperplasia without lower urinary tract symptoms Category: Medical (2) Renal cyst: Code(s): N28.1 - Cyst of kidney, acquired Category: Medical (3) Incomplete bladder emptying: Code(s): R33.9 - Retention of urine, unspecified Category: Medical (4) Nephrolithiasis: Code(s): N20.0 - Calculus of kidney Category: Medical (5) Elevated PSA: Code(s): R97.20 - Elevated prostate specific antigen [PSA] Category: Medical Plan Recent PSA results reviewed with the patient today; although over. Patient currently denies any bothersome urinary issues or concerns. He reports be happy with current voiding parameters. Continue terazosin and finasteride as prescribed Will obtain renal ultrasound in 6 months for surveillance monitoring of nephrolithiasis. Will obtain PSA in 6 months. Discussed, educated, and stressed the importance of adequate hydration relation to nephrolithiasis as well as overall health and well-being. Follow-up in 6 months with imaging and labs to be completed prior; or sooner with any issues, concerns, and or questions. Orders: Orders Prostate Specific Antigen 6 Months N40.0 - Benign prostatic hyperplasia without lower urinary tract symptoms US renal BI 6 Months N20.0 - Calculus of kidney Patient Instructions: The patient had an opportunity to ask questions regarding the treatment plan. All questions were answered. Physical exam, labs, and imaging were discussed and reviewed in detail. As well as risks, benefits, and discussion of treatment choices. No major barriers to understanding were identified. The patient expressed understanding and agreement with the above treatment plan. The patient was made aware they should contact our office by phone for worsening of their current condition, the appearance of new symptoms, or with any questions or concerns. Compliance is encouraged with any medications and follow up testing that is ordered. It is a privilege to be allowed the opportunity to participate in? your urological care.? Again, if you have any questions or concerns If you have any questions or concerns please do not hesitate to contact me. The office is [phone]. This note is constructed using voice recognition software. While every effort has been made to ensure accuracy statement clerk errors may have been included. Yours sincerely, MARLON Jama Coding Level of Care Code Tele Est Pt Level 3 (38200) Diagnoses Enlarged prostate N40.0 Renal cyst N28.1 Incomplete bladder emptying R33.9 Nephrolithiasis N20.0 Elevated PSA R97.20
== END 2024-11-08 09:16 | disposition home or self-care (01) ==
LOC: HO.HUSH 07:38
PROVIDERS: PCP Family Medicine; Visit Provider Nurse Practitioner Family
DX: N40.0 Benign prostatic hyperplasia without lower urinary tract symptoms (principal); N28.1 Cyst of kidney, acquired; R33.9 Retention of urine, unspecified; N20.0 Calculus of kidney; R97.20 Elevated prostate specific antigen [PSA]
CPT/HCPCS: 99442

== ENCOUNTER → 2024-11-08 07:38 | Outpatient (BNVA) | payer MEDICARE, SELFPAY | PROVIDERS: PCP Family Medicine; Visit Provider Nurse Practitioner Family ==

== ENCOUNTER 2024-11-11 09:39 | Outpatient (AMB) | payer MEDICARE, SELFPAY ==
--- NOTE | 2024-11-11 10:01 | A.OFFPC_ITS ---
Vital Signs 11/11/24 10:04 Height 5 ft 11 in Weight 285 lb 5 oz BMI 39.8 BP 130/70 Blood Pressure Location Rt brachial Position Sitting Respiration 14 Pulse 62 Pulse Source Pulse Oximeter Pulse Oximetry (%) 96 Oxygen Delivery Method Room Air Intake Visit Reasons: F/u Hypertension - see comments Intake Note: f/u up htn Allergies aspirin Allergy (Mild, Verified 11/11/24 10:02) swelling Tobacco use date assessed: 06/30/23 Dental Screening Dental Screen Date: 01/14/24 HPI F/u Hypertension - see comments HPI Details 78 y/o male presents to f/u hypertension , diabetes, hyperlipidemia. Last A1c 01/14/24 7.1%. He is on metformin 250mg b.i.d. Has some calluses of his feet. BP today 130/70, 62p. He is on lisinopril 2.5mg, metoprolol 25mg daily. Last labs drawn 09/12/24. Reviewed labs with pt. Triglycerides 250. TC 196. LDL 107. HDL 39. Notes some lower extremity edema. HPI Comments History of Present Illness Details Documentation assistance for Kartik Khoury MD, was provided by Wolfgang De Jesus,? Consumer Loan Manager on 11/11/2024 at 10:37 AM EST. I, Dr. Khoury, have read, observed, and verified documentation. ?? [facility] Medical History Diabetes Hyperlipidemia Hypertension Deviated septum Surgical History H/O transurethral resection of prostate H/O right inguinal hernia repair Social History Housing: House Patient Tobacco Use Status: Never used Tobacco e-Cigarette/Vaping Use: Never Used Second Hand Smoke Exposure: No service: No Current occupational status: retired Current occupational exposures/hazards: No Cognitive needs: No Hearing needs: No Vision needs: No Questionnaire PHQ-9 Over the last 2 weeks, how often have you been bothered by any of the following problems? 1. Little interest or pleasure in doing things: not at all 2. Feeling down, depressed, or hopeless: not at all 3. Trouble falling or staying asleep, or sleeping too much: not at all 4. Feeling tired or having little energy: not at all 5. Poor appetite or overeating: not at all 6. Feeling bad about yourself - or that you are a failure or have let yourself or your family down: not at all 7. Trouble concentrating on things, such as reading the newspaper or watching television: not at all 8. Moving or speaking so slowly that other people could have noticed. Or the opposite - being so fidgety or restless that you have been moving around a lot more than usual: not at all 9. Thoughts that you would be better off or of hurting yourself in some way: not at all Total score: 0 Source: Developed by Drs. Randall Ya, Monet Callejas, Darrell Harmon and colleagues, with an educational елена from [employer]. Thrive Questionnaire Date Thrive assessed: 01/14/24 I am a: Patient What is your living situation today?: I have a steady place to live Within the past 12 months, did the food you bought not last and you didn't have the money to get more?: Never true Within the past 12 months, did you worry whether your food would run out before you got money to buy more?: Never true Do you have trouble paying for medicines?: No Do you have trouble getting transportation to medical appointments?: No Do you have trouble paying your heating and electricity bill?: No Do you have trouble taking care of your child, family member or friend?: No Do you have trouble with day-to-day activities such as bathing, preparing meals, shopping, managing finances, etc.?: No Are you currently unemployed and looking for a job?: No Are you interested in more education?: No Please select the resources that you would like help with: None Currently or been in a relationship where the following occur: No concerns reported THRIVE Score: 0 AUDIT C Alcohol Use Questionnaire (AUDIT-C) 1. How often do you have a drink containing alcohol?: Never Total Score: 0 RADHA-7 AMB Questionnaire RADAH-7 Date RADHA - 7 assessed: 01/14/24 Feeling nervous, anxious, or on edge: 0 = Not at all Not being able to stop or control worryin = Not at all Worrying too much about different things: 0 = Not at all Trouble relaxin = Not at all Being so restless that it is hard to sit still: 0 = Not at all Becoming easily annoyed or irritable: 0 = Not at all Feeling afraid as if something awful might happen: 0 = Not at all Total RADHA-7 score (0-4 normal; 5-9 mild; 10-14 moderate; 15-21 severe): 0 Source: Developed by Drs. Randall Ya, Monet Callejas, Darrell Harmon and colleagues, with an educational елена from [employer]. Review of Systems Const Denies chills, Denies fatigue, Denies fever(s), Denies headache(s) and Denies weakness ENT Denies dizziness and Denies headache(s) Card Denies chest pain, Denies lightheadedness, Denies dyspnea and Denies other (Palpitations) Resp Denies cough, Denies dyspnea, Denies wheezing and Denies other ( shortness of breath) Musc Denies numbness and Denies tingling Neuro Denies dizziness, Denies headache(s), Denies numbness, Denies tingling, Denies paresthesias and Denies weakness Psych Denies anxiety and Denies depression Endo Denies fatigue Aller/Immun Denies wheezing Physical exam (Primary Care) Vital Signs: Last Vital Signs Pulse 62 11/11/24 10:04 Resp 14 11/11/24 10:04 BP 130/70 11/11/24 10:04 Pulse Ox 96 11/11/24 10:04 Oxygen Delivery Method Room Air 11/11/24 10:04 BMI result Body Mass Index 39.8 Tobacco/Smoking Status: Tobacco use Status Tobacco use date assessed 06/30/23 11/11/24 10:07 Patient Tobacco Use Status Never used Tobacco 11/11/24 10:07 e-Cigarette/Vaping Use Never Used 11/11/24 10:07 PHQ-9: PHQ-9 Score PHQ-9: Total score 0 11/11/24 10:24 Thrive Assessment: Date of Thrive Assessment Date Thrive assessed 01/14/24 11/11/24 10:07 Currently or been in a relationship where the following occur: No concerns reported Const General: no acute distress and well developed Nutritional Appearance: well nourished Orientation/consciousness: patient oriented x3 HENMT Head: Yes normocephalic and Yes atraumatic Eyes General: appearance normal, both eyes and all related structures Pupils: Equal, round and reactive pupils present EOM: EOMs intact bilaterally Resp Effort & Inspection: normal respiratory effort Auscultation: clear to auscultation bilaterally Cardio Rate: regular rate Rhythm: regular rhythm Heart sounds: S1 normal heart sound present, S2 normal heart sound present, no gallops, no murmurs and no rubs Neuro General: patient oriented x3 and gait normal Cranial nerves: Yes Equal, round and reactive pupils present Psych Affect: normal affect Coding Level of Care Code Est Pt Level 4 (67400) Diagnoses Diabetes E11.9 Hypertension I10 Hyperlipidemia E78.5 Lower extremity edema R60.0 Foot callus L84 Assessment & Plan Assessment & Plan (1) Diabetes: Code(s): E11.9 - Type 2 diabetes mellitus without complications Category: Medical Plan: A1c?6.9%?is?back?at?goal.??Goal?is?less?than?7.0% Continue?current?medication?regimen Work?at?diet?low?in?sugars?and?starches Up-to-date?with?eye?exam?which?showed?no?diabetic?retinopathy?in?January (2) Hypertension: Code(s): I10 - Essential (primary) hypertension Category: Medical Plan: Blood?pressure?is?fairly?well?controlled.??Goal?is?less?than?130/80 Continue?current?medication Watch?salt/sodium?in?diet (3) Hyperlipidemia: Code(s): E78.5 - Hyperlipidemia, unspecified Category: Medical Plan: LDL?cholesterol?is?a?little?too?high?and?his?HDL?is?a?little?too?low. He?has?been?taking?simvastatin?20?mg?daily Will?try?switching?this?to?atorvastatin?20?mg?daily Recheck?lipids?with?next?blood?draw?and?we?will?review?at?his?next?visit (4) Lower extremity edema: Code(s): R60.0 - Localized edema Category: Medical Plan: Mild?lower?extremity?edema Elevate?legs Use?compression?stockings Avoid?salt/sodium (5) Foot callus: Code(s): L84 - Corns and callosities Category: Medical Plan: Patient?with?diabetes?and?significant?bilateral?callus?on?feet Referred?to?Podiatry?for?diabetic?foot?and?nail?care Orders: Referrals Podiatry Referral E11.9 - Type 2 diabetes mellitus without complications, L84 - Corns and callosities Medications: New atorvastatin 20 mg PO BEDTIME 90 days 90 tabs 3RF Discontinued simvastatin Discontinued Reason: Doctor's Order 20 mg PO BEDTIME 90 days 90 tabs 0RF
[2024-11-11 10:04] VITALS: BP 130/70; PULSE 62; RESP 14; O2SAT 96; BMI 39.8
== END 2024-11-11 10:38 | disposition home or self-care (01) ==
PROVIDERS: PCP Family Medicine; Visit Provider Family Medicine
DX: E11.9 Type 2 diabetes mellitus without complications (principal); I10 Essential (primary) hypertension; E78.5 Hyperlipidemia, unspecified; R60.0 Localized edema; L84 Corns and callosities

== ENCOUNTER 2025-02-02 07:35 | Outpatient (REF) | payer MEDICARE, SELFPAY ==
[2025-02-02 11:42] LABS: Alanine Aminotransferase 39 U/L (0-40); Alkaline Phosphatase 67 U/L (39-117); Anion Gap 10 (12-20); Aspartate Amino Transferase 28 U/L (5-37); Bilirubin Total 1.4 mg/dL (0.0-1.0); Blood Urea Nitrogen 22 mg/dL (9-16); Calcium 9.1 mg/dL (8.4-10.2); Carbon Dioxide 25 mmol/L (22-29); Chloride 108 mmol/L (96-108); Cholesterol 156 mg/dL (<200); Estimated Glomerular Filt Rate > 60; Glucose Fasting 141 mg/dL (60-99); HDL Cholesterol 35 mg/dL (>40); LDL Cholesterol Calculated 89 mg/dL (<100); Potassium 4.3 mmol/L (3.3-5.1); Sodium 139 mmol/L (135-145); Total Protein 6.9 g/dL (6.5-8.0); Triglycerides 163 mg/dL (<150)
== END 2025-02-02 07:36 | disposition home or self-care (01) ==
LOC: HO.WFDLDS 07:35
PROVIDERS: Visit Provider Family Medicine
DX: Z00.00 Encounter for general adult medical examination without abnormal findings (principal); E78.5 Hyperlipidemia, unspecified
CPT/HCPCS: 36415; 80053; 80061

== ENCOUNTER 2025-02-10 08:38 | Outpatient (AMB) | payer MEDICARE, SELFPAY ==
--- NOTE | 2025-02-10 08:51 | MHC.PC.OV ---
Vital Signs 02/10/25 08:57 Height 5 ft 11 in Weight 277 lb BMI 38.6 BP 120/60 Blood Pressure Location Rt brachial Position Sitting Respiration 10 L Pulse 67 Pulse Source Pulse Oximeter Temp 98.1 F Temp Source Oral Pulse Oximetry (%) 92 Oxygen Delivery Method Room Air Intake Visit Reasons: f/u HTN, HLD, diabetes Intake Note: patient is scheduled for lab review and htn & dm follow up Activities Counselor Required: No Allergies aspirin Allergy (Mild, Verified 02/10/25 08:56) swelling Medication List - Last Reconciled 02/10/25 by Kartik Khoury MD atorvastatin 20 mg PO BEDTIME 90 days cetirizine (All Day Allergy (cetirizine)) 10 mg PO DAILY PRN 90 days clopidogrel 75 mg PO DAILY 90 days clotrimazole-betamethasone 1-0.05 % 1 appl topical BID 2 weeks diphenhydramine HCl 2% (Benadryl) 1 appl topical TID PRN 14 days finasteride 5 mg PO DAILY 90 days fluticasone propionate 50 mcg/actuation (Flonase Allergy Relief) 1 spray intranasal Q12H 30 days guaifenesin ER (Mucinex) 600 mg PO Q12H PRN 5 days ketoconazole 2% 1 appl topical DAILY 30 days lisinopril 2.5 mg PO DAILY 90 days metformin 250 mg (1/2 x 500 mg) PO BID 90 days metoprolol succinate ER 25 mg PO DAILY 90 days terazosin 5 mg PO BEDTIME 90 days Tobacco use date assessed: 06/30/23 Dental Screening Dental Screen Date: 01/14/24 HPI f/u HTN, HLD, diabetes HPI Details 79 y/o male presents to f/u HLD, diabetes, HTN. Had switched his simvastatin 20mg daily to artovastatin 20mg daily. Last A1c 11/11/24 6.9%. Labs drawn 02/02/25. Reviewed labs with pt. Triglycerides 163. TC 156. LDL 89. HDL low at 35. He is on artovastatin 20mg. BP today 120/60, 67p. He is on metoprolol 25mg, lisinopril 2.5 mg daily. Has complaints of a rash on his back. [facility] Medical History Diabetes Hyperlipidemia Hypertension Deviated septum Surgical History H/O transurethral resection of prostate H/O right inguinal hernia repair Social History Housing: House Patient Tobacco Use Status: Never used Tobacco e-Cigarette/Vaping Use: Never Used Second Hand Smoke Exposure: No service: No Current occupational status: retired Current occupational exposures/hazards: No Cognitive needs: No Hearing needs: No Vision needs: No Questionnaire Thrive Questionnaire Date Thrive assessed: 11/11/24 I am a: Patient What is your living situation today?: I have a steady place to live Within the past 12 months, did the food you bought not last and you didn't have the money to get more?: Never true Within the past 12 months, did you worry whether your food would run out before you got money to buy more?: Never true Do you have trouble paying for medicines?: No Do you have trouble getting transportation to medical appointments?: No Do you have trouble paying your heating and electricity bill?: No Do you have trouble taking care of your child, family member or friend?: No Do you have trouble with day-to-day activities such as bathing, preparing meals, shopping, managing finances, etc.?: No Are you currently unemployed and looking for a job?: No Are you interested in more education?: No Please select the resources that you would like help with: None Currently or been in a relationship where the following occur: No concerns reported THRIVE Score: 0 AUDIT C Alcohol Use Questionnaire (AUDIT-C) 2. How many drinks containing alcohol do you have on a typical day when you are drinking?: 1 or 2 3. How often do you have six or more drinks on one occasion?: Never Total Score: 0 RADHA-7 AMB Questionnaire RADHA-7 Date RADHA - 7 assessed: 01/14/24 Source: Developed by Drs. Randall Ya, Monet Callejas, Darrell Harmon and colleagues, with an educational елена from [employer]. Review of Systems Const Denies chills, Denies fatigue, Denies fever(s), Denies headache(s) and Denies weakness ENT Denies dizziness and Denies headache(s) Card Denies dyspnea Resp Denies cough, Denies dyspnea, Denies wheezing and Denies other (shortness of breath) Musc Denies numbness and Denies tingling Neuro Denies dizziness, Denies headache(s), Denies numbness, Denies tingling and Denies weakness Psych Denies anxiety and Denies depression Endo Denies fatigue Aller/Immun Denies wheezing Physical exam (Primary Care) Vital Signs: Last Vital Signs Temp 98.1 F 02/10/25 08:57 Pulse 67 02/10/25 08:57 Resp 10 L 02/10/25 08:57 BP 120/60 02/10/25 08:57 Pulse Ox 92 02/10/25 08:57 Oxygen Delivery Method Room Air 02/10/25 08:57 BMI result Body Mass Index 38.6 Tobacco/Smoking Status: Tobacco use Status Tobacco use date assessed 06/30/23 02/10/25 08:51 Patient Tobacco Use Status Never used Tobacco 02/10/25 08:51 e-Cigarette/Vaping Use Never Used 02/10/25 08:51 Thrive Assessment: Date of Thrive Assessment Date Thrive assessed 11/11/24 02/10/25 08:51 Currently or been in a relationship where the following occur: No concerns reported Const General: well developed; No acute distress Nutritional Appearance: well nourished Orientation/consciousness: patient oriented x3 [facility] Head: Yes normocephalic and Yes atraumatic Eyes General: appearance normal, both eyes and all related structures Pupils: Equal, round and reactive pupils present EOM: EOMs intact bilaterally Resp Effort & Inspection: normal respiratory effort Auscultation: clear to auscultation bilaterally Cardio Rate: regular rate Rhythm: regular rhythm Heart sounds: S1 normal heart sound present, S2 normal heart sound present, no gallops, no murmurs and no rubs Neuro General: patient oriented x3 and gait normal Cranial nerves: Yes Equal, round and reactive pupils present Psych Affect: normal affect Coding Level of Care Code Est Pt Level 3 (57410) Diagnoses Hypertension I10 Hyperlipidemia E78.5 Diabetes E11.9 Rash R21 Assessment & Plan Assessment & Plan (1) Hypertension: Code(s): I10 - Essential (primary) hypertension Category: Medical Plan: Blood?pressure?is?controlled.??Goal?is?less?than?140/90 Continue?current?medications (2) Hyperlipidemia: Code(s): E78.5 - Hyperlipidemia, unspecified Category: Medical Plan: LDL?cholesterol?is?improved HDL?is?low Continue?atorvastatin Encouraged?exercise (3) Diabetes: Code(s): E11.9 - Type 2 diabetes mellitus without complications Category: Medical Plan: A1c?7.1%.??Fair?control?for?79-year-old?patient. Goal?is?around?7.0% Continue?current?medication Work?at?a?diet?low?in?sugars?and?starches Encouraged?exercise (4) Rash: Code(s): R21 - Rash and other nonspecific skin eruption Category: Medical Plan: Appears?to?have contact?dermatitis?on?his?back.??He?says?symptoms?are?worse?when?he?lies?on?his?bed. A?little?better?when?he?is?wearing?a?short?while?lying?on?his?bed Advised?he?wash?bedding?in?rinse?twice Use?cetirizine Possible?fungal?infection?though?this?appears?less?likely?given?location and?appearance Will?give?him?a?script for?betamethasone?clotrimazole?cream x 2 weeks. Medications: New clotrimazole-betamethasone 1-0.05 % 1 appl topical BID 2 weeks 60 grams 0RF
[2025-02-10 08:57] VITALS: BP 120/60; PULSE 67; RESP 10; TEMP 36.7; O2SAT 92; BMI 38.6
== END 2025-02-10 09:41 | disposition home or self-care (01) ==
LOC: HO.HMCFM 08:38
PROVIDERS: PCP Family Medicine; Visit Provider Family Medicine
DX: I10 Essential (primary) hypertension (principal); E78.5 Hyperlipidemia, unspecified; E11.9 Type 2 diabetes mellitus without complications; R21 Rash and other nonspecific skin eruption

== ENCOUNTER → 2025-02-10 08:38 | Outpatient (BNVA) | payer MEDICARE, SELFPAY | PROVIDERS: PCP Family Medicine; Visit Provider Family Medicine | DX: I10 Essential (primary) hypertension (principal); E78.5 Hyperlipidemia, unspecified; E11.9 Type 2 diabetes mellitus without complications; R21 Rash and other nonspecific skin eruption | CPT/HCPCS: 99212 ==

== ENCOUNTER 2025-02-16 15:21 | Outpatient (AMB) | payer MEDICARE, SELFPAY ==
--- NOTE | 2025-02-16 15:31 | MHC.PC.OV ---
Intake Visit Reasons: Annual PE Intake Note: Physical. Found a lump on left testicle Thursday night. Clinical Recruiter Required: No Allergies aspirin Allergy (Mild, Verified 02/16/25 15:32) swelling Medication List - Last Reconciled 02/16/25 by Mari Arreola PA-C atorvastatin 20 mg PO BEDTIME 90 days cetirizine (All Day Allergy (cetirizine)) 10 mg PO DAILY PRN 90 days clopidogrel 75 mg PO DAILY 90 days clotrimazole-betamethasone 1-0.05 % 1 appl topical BID 2 weeks diphenhydramine HCl 2% (Benadryl) 1 appl topical TID PRN 14 days finasteride 5 mg PO DAILY 90 days ketoconazole 2% 1 appl topical DAILY 30 days lisinopril 2.5 mg PO DAILY 90 days metformin 250 mg (1/2 x 500 mg) PO BID 90 days metoprolol succinate ER 25 mg PO DAILY 90 days terazosin 5 mg PO BEDTIME 90 days Tobacco use date assessed: 02/16/25 Fall risk assessment: No Falls in past year Last assessed Fall Risk: 02/16/25 Dental Screening Dental Screen Date: 02/16/25 Did you have a dental visit in the last 12 months?: Yes Did you have a dental problem in the last 6 months where you did not have access to dental care?: No Was dental information given to patient?: Patient has dentist HPI Annual PE HPI Details Patient is an 79-year-old male who presents today for a physical exam. He was seen last week by his PCP for a routine follow up. He has a history of enlarged prostate, hypertension, hyperlipidemia, microalbuminuria, urinary retention and cardiomegaly. Blood pressure today in the office is 120/60. He states that he is compliant with his medications. He does not monitor his blood sugars at home but denies any hypoglycemic events. His last A1c was 6.9. Left testicular that he noted on Thursday and since then has resolved. Denies any penile discharge or blood in the urine. Colonoscopy: around 2018 at [place] PSA: UTD, 2023 [facility] Medical History Diabetes Hyperlipidemia Hypertension Deviated septum Surgical History H/O transurethral resection of prostate H/O right inguinal hernia repair Social History Housing: House Patient Tobacco Use Status: Never used Tobacco e-Cigarette/Vaping Use: Never Used Second Hand Smoke Exposure: No service: No Current occupational status: retired Current occupational exposures/hazards: No Cognitive needs: No Hearing needs: No Vision needs: No Questionnaire Thrive Questionnaire Date Thrive assessed: 02/16/25 I am a: Patient What is your living situation today?: I have a steady place to live Within the past 12 months, did the food you bought not last and you didn't have the money to get more?: Never true Within the past 12 months, did you worry whether your food would run out before you got money to buy more?: Never true Do you have trouble paying for medicines?: No Do you have trouble getting transportation to medical appointments?: No Do you have trouble paying your heating and electricity bill?: No Do you have trouble taking care of your child, family member or friend?: No Do you have trouble with day-to-day activities such as bathing, preparing meals, shopping, managing finances, etc.?: No Are you currently unemployed and looking for a job?: No Are you interested in more education?: No Please select the resources that you would like help with: None Currently or been in a relationship where the following occur: No concerns reported THRIVE Score: 0 RADHA-7 AMB Questionnaire RADHA-7 Date RADHA - 7 assessed: 01/14/24 Source: Developed by Drs. Randall Ya, Monet Callejas, Darrell Harmon and colleagues, with an educational елена from [employer]. Physical exam (Primary Care) Tobacco/Smoking Status: Tobacco use Status Tobacco use date assessed 02/16/25 02/16/25 15:38 Patient Tobacco Use Status Never used Tobacco 02/16/25 15:35 e-Cigarette/Vaping Use Never Used 02/16/25 15:35 Thrive Assessment: Date of Thrive Assessment Date Thrive assessed 02/16/25 02/16/25 15:41 Currently or been in a relationship where the following occur: No concerns reported Const Orientation/consciousness: patient oriented x3 HENMT Ears: hearing grossly normal bilaterally and TM's normal bilaterally General nose exam: No nasal polyps present Face and sinus: Yes sinuses nontender Mouth: Normal oral and palatal mucosa present Eyes Pupils: Equal, round and reactive pupils present EOM: EOMs intact bilaterally Neck Neck: Yes full ROM and Yes no lymphadenopathy Thyroid: Thyroid normal Chest Chest palpation & inspection: normal inspection of the chest Resp Auscultation: clear to auscultation bilaterally Cardio Rate: regular rate Rhythm: regular rhythm GI Other: Soft, nontender Auscultation: normal bowel sounds Rectal Exam - Male: Yes deferred Other: Edger Technician present. No testicular masses noted. General: Yes no CVA tenderness Back/Spine/Pelvis Other: Nontender Back: no CVA tenderness Skin General skin exam: no rashes or lesions noted Neuro General: patient oriented x3, gait normal, CN's II-XI intact bilaterally and deep tendon reflexes 2+ bilaterally Cranial nerves: Yes Equal, round and reactive pupils present Extrem General: Yes normal to inspection and Yes full ROM Psych Affect: normal affect Attitude: cooperative Thought process: Normal thought process present Thought content: Normal thought content present Coding Level of Care Code Est Pt Prev Care >65y(14091) Diagnoses Routine general medical examination at a health care facility Z00.00 Lump in the testicle N50.89 Hypertension I10 Diabetes E11.9 Hyperlipidemia E78.5 Assessment & Plan Assessment & Plan (1) Routine general medical examination at a health care facility: Code(s): Z00.00 - Encounter for general adult medical examination without abnormal findings Plan: Health maintenance reviewed. Declines immunizations as he states he never really leaves the house much. (2) Lump in the testicle: Code(s): N50.89 - Other specified disorders of the male genital organs Category: Medical Plan: Ultrasound ordered. Urine ordered. Has follow up with Urology. (3) Hypertension: Code(s): I10 - Essential (primary) hypertension Category: Medical Plan: Continue current regimen (4) Diabetes: Code(s): E11.9 - Type 2 diabetes mellitus without complications Category: Medical Plan: Continue current regimen (5) Hyperlipidemia: Code(s): E78.5 - Hyperlipidemia, unspecified Category: Medical Plan: Continue current regimen reviewed labs with patient. Orders: Orders UA CC w/rflx Micro + Cult Today N50.89 - Other specified disorders of the male genital organs, Z13.220 - Encounter for screening for lipoid disorders US scrotum Today N50.89 - Other specified disorders of the male genital organs
== END 2025-02-16 17:09 | disposition home or self-care (01) ==
LOC: HO.HMCFM 15:22
PROVIDERS: PCP Family Medicine; Visit Provider Physician Assistant
DX: Z00.00 Encounter for general adult medical examination without abnormal findings (principal); N50.89 Other specified disorders of the male genital organs; I10 Essential (primary) hypertension; E11.9 Type 2 diabetes mellitus without complications; E78.5 Hyperlipidemia, unspecified

== ENCOUNTER → 2025-02-16 15:21 | Outpatient (BNVA) | payer MEDICARE, SELFPAY | PROVIDERS: PCP Family Medicine; Visit Provider Physician Assistant | DX: Z00.00 Encounter for general adult medical examination without abnormal findings (principal); N50.89 Other specified disorders of the male genital organs; I10 Essential (primary) hypertension; E11.9 Type 2 diabetes mellitus without complications; E78.5 Hyperlipidemia, unspecified; N40.1 Benign prostatic hyperplasia with lower urinary tract symptoms; R33.8 Other retention of urine; I42.9 Cardiomyopathy, unspecified | CPT/HCPCS: 99397 ==

== ENCOUNTER 2025-04-12 13:22 | Outpatient (REF) | payer MEDICARE, SELFPAY ==
--- NOTE | ~2025-04-12 | US_ITS ---
CLINICAL HISTORY: N20.0 - Calculus of kidney US Renal Comparison: None Findings: Examination is limited by body habitus. Right kidney normal size and echotexture, 12.7 cm length. 6 x 5 x 6 mm calcification of the upper pole. Left kidney normal size and echotexture, 12.4 cm length. Peripelvic cysts 2.4 x 2 x 2.8 cm. No hydronephrosis of either kidney. Normal color Doppler. IMPRESSION: Possible right kidney stone. This document has been electronically signed by: Carl Echeverria MD on 04/12/2025 16:50:34
--- NOTE | ~2025-04-12 | US_ITS ---
CLINICAL HISTORY: N50.89 - Other specified disorders of the male genital organs --- Additional Notes or Special Instructions: Testicular mass US SCROTUM WITH DOPPLER Comparison: None Findings: Right testicle normal echotexture, 4.3 x 2.5 x 3.7 cm. Left testicle normal echotexture, 3.8 x 2.5 x 3.0 cm. Normal color flow and arterial/venous spectral tracing of both testicles. 4.2 mm right epididymal head cyst. Epididymides are otherwise unremarkable. Tiny right hydrocele. Prominent left-sided varicoceles. 3 mm echogenic focus in the right scrotal sac is consistent with a scrotolith. IMPRESSION: 1. No suspicious mass or fluid collection. 2. No acute testicular torsion or acute epididymo-orchitis. 3. Left-sided varicoceles. 4. Additional findings as above. This document has been electronically signed by: Michelle Singh DO on 04/12/2025 14:57:56
== END 2025-04-12 13:23 | disposition home or self-care (01) ==
LOC: HO.HMGCX 13:22
PROVIDERS: PCP Family Medicine; Visit Provider Physician Assistant
DX: N50.89 Other specified disorders of the male genital organs (principal); N20.0 Calculus of kidney
CPT/HCPCS: 76775; 76870

== ENCOUNTER → 2025-04-12 13:24 | Outpatient (BNV) | payer MEDICARE, SELFPAY | PROVIDERS: PCP Family Medicine; Visit Provider Radiology Diagnostic Radiology | DX: I86.1 Scrotal varices (principal); N20.0 Calculus of kidney | CPT/HCPCS: 76775; 76870 ==

== ENCOUNTER 2025-04-26 08:47 | Outpatient (REF) | payer MEDICARE, SELFPAY ==
[2025-04-26 12:18] LABS: Prostate Specific Antigen 3.97 ng/mL (<0.05-4.0)
== END 2025-04-26 08:48 | disposition home or self-care (01) ==
LOC: HO.WFDLDS 08:47
PROVIDERS: Visit Provider Nurse Practitioner Family
DX: N40.0 Benign prostatic hyperplasia without lower urinary tract symptoms (principal); Z12.5 Encounter for screening for malignant neoplasm of prostate
CPT/HCPCS: 36415; 84153

== ENCOUNTER 2025-05-02 10:37 | Outpatient (AMB) | payer MEDICARE, SELFPAY ==
--- NOTE | 2025-05-02 10:49 | MHC.OFFVIS ---
Intake Visit Reasons: 6m/labs/US Intake Note: Patient presents today for 6m follow-up/US/PSA PSA: 3.97 Imaging comp. 04/12/25 Urology Medications: Finasteride, Terazosin Blood Thinner- Clopidogrel PVR:0ml Fire Equipment Operator Required: No Accompanied by: Self / Same As Patient Allergies aspirin Allergy (Mild, Verified 05/02/25 11:48) swelling Medication List - Last Reconciled 05/02/25 by MARY Jama- atorvastatin 20 mg PO BEDTIME 90 days cetirizine (All Day Allergy (cetirizine)) 10 mg PO DAILY PRN 90 days clopidogrel 75 mg PO DAILY 90 days clotrimazole-betamethasone 1-0.05 % 1 appl topical BID 2 weeks diphenhydramine HCl 2% (Benadryl) 1 appl topical TID PRN 14 days finasteride 5 mg PO DAILY 90 days ketoconazole 2% 1 appl topical DAILY 30 days lisinopril 2.5 mg PO DAILY 90 days metoprolol succinate ER 25 mg PO DAILY 90 days terazosin 5 mg PO BEDTIME 90 days HPI Comments Details: Gilberto is a very pleasant 79-year-old male patient of Dr. Khoury. He has a past medical history of hypertension, hyperlipidemia, diabetes, and seasonal allergies. He presents to the office today for follow-up of his elevated PSA and lower urinary tract symptoms. In discussion with the patient today he reports to be doing and feeling well. He denies having had any bothersome urinary issues or concerns since his last office visit. We did review recent PSA results in discussed bump in PSA. He does report noncompliance in medications from time to time. We did discussed potential causes of slight increase in PSA as well as importance of taking medications as prescribed. Recent renal imaging results were reviewed as well as scrotal ultrasound results that were ordered and obtained by endocrinology. Renal ultrasound 05/03 bilateral kidneys with no hydronephrosis possible nonobstructing right renal stone in the upper pole measuring 5 mm. He reports having having reported to endocrinology a solitary event of a palpable left scrotal lump that has since subsided. Scrotal ultrasound 05/03 notes bilateral testicles are normal in echotexture. Normal flow of bilateral testicles. No suspicious masses or fluid collection noted bilaterally. Left-sided varicoceles. No acute testicular torsion or acute epididymo-orchitis. He discusses his previous history of bladder stones and having had a TURP in [facility] in 2004. PSAs are as follows: 03/30 2.9, 07/01 4.6, 10/01 6.2 percent free:22%, 03/02 2.2, 10/02 2.6, 05/03 4.0 He reports noting significant improvement in urinary frequency and nocturia with 5 mg of terazosin daily. He denies urinary urgency, urinary frequency, incontinence, nocturia, hematuria, dysuria, foul smelling urine, changes to urinary stream, flank pain, fever, and or chills. He is happy with his current voiding parameters. He otherwise offers no other issues or concerns at this time. [facility] Medical History Diabetes Hyperlipidemia Hypertension Deviated septum Surgical History H/O transurethral resection of prostate H/O right inguinal hernia repair Social History Housing: House Patient Tobacco Use Status: Never used Tobacco e-Cigarette/Vaping Use: Never Used Second Hand Smoke Exposure: No service: No Current occupational status: retired Current occupational exposures/hazards: No Cognitive needs: No Hearing needs: No Vision needs: No Review of Systems Const All systems reviewed & are unremarkable except as noted in HPI and below Eyes Reports no additional complaints ENT Reports no additional complaints Card Reports as per HPI Resp Reports no additional complaints GI Reports no additional complaints Reports as per HPI Musc Reports no additional complaints Neuro Reports no additional complaints Psych Reports no additional complaints Endo Reports as per HPI Osei/Lymph Reports no additional complaints Aller/Immun Reports as per HPI Physical Exam Const General: cooperative, healthy appearing, comfortable, no acute distress, well developed, alert and awake Nutritional Appearance: overweight Orientation/consciousness: patient oriented x3 Limitations: no limitations HEENT Head: Yes normal to inspection, Yes normocephalic and Yes atraumatic Ears: hearing grossly normal bilaterally Eyes General: appearance normal, both eyes and all related structures Neck Neck: Yes normal visual inspection and Yes trachea midline Chest Chest palpation & inspection: normal inspection of the chest Resp Effort & Inspection: normal respiratory effort and able to speak in complete sentences Cardio Rate: regular rate GI Inspection: Yes normal to inspection General: Yes no CVA tenderness Back/Spine/Pelvis Back: no CVA tenderness Skin General skin exam: no rashes or lesions noted Neuro General: patient oriented x3 Extrem General: Yes normal to inspection Psych Appearance: grossly normal and well kempt Mental Status: mental status grossly normal Speech and movement: Normal speech and movement present and Clear speech present Affect: normal affect Attitude: cooperative Thought process: Normal thought process present Thought content: Normal thought content present Insight: Fair insight present (Psych) Judgement: Fair judgement present (Psych) Office Procedures Post Void Residual Post Residual Void Post Void Residual (PVR): 0 61822-Gagn Void Residual by ultrasound Results Reviewed Results Reviewed: Date of Service: 04/12/25 Procedure(s): US renal BI Findings: Examination is limited by body habitus. Right kidney normal size and echotexture, 12.7 cm length. 6 x 5 x 6 mm calcification of the upper pole. Left kidney normal size and echotexture, 12.4 cm length. Peripelvic cysts 2.4 x 2 x 2.8 cm. No hydronephrosis of either kidney. Normal color Doppler. IMPRESSION: Possible right kidney stone. Date of Service: 04/12/25 Procedure(s): US scrotum Findings: Right testicle normal echotexture, 4.3 x 2.5 x 3.7 cm. Left testicle normal echotexture, 3.8 x 2.5 x 3.0 cm. Normal color flow and arterial/venous spectral tracing of both testicles. 4.2 mm right epididymal head cyst. Epididymides are otherwise unremarkable. Tiny right hydrocele. Prominent left-sided varicoceles. 3 mm echogenic focus in the right scrotal sac is consistent with a scrotolith. IMPRESSION: 1. No suspicious mass or fluid collection. 2. No acute testicular torsion or acute epididymo-orchitis. 3. Left-sided varicoceles. 4. Additional findings as above. Assessment & Plan Assessment & Plan (1) Nephrolithiasis: Code(s): N20.0 - Calculus of kidney Category: Medical (2) Left varicocele: Code(s): I86.1 - Scrotal varices Category: Medical (3) Elevated PSA: Code(s): R97.20 - Elevated prostate specific antigen [PSA] Category: Medical (4) Enlarged prostate: Code(s): N40.0 - Benign prostatic hyperplasia without lower urinary tract symptoms Category: Medical (5) Urinary retention: Code(s): R33.9 - Retention of urine, unspecified Category: Medical (6) Urinary frequency: Code(s): R35.0 - Frequency of micturition Category: Medical Plan In office urinalysis results reviewed with the patient today; as noted above. PVR 0 mL. We discussed potential causes of bump in PSA as well as further treatment options and risks and benefits of these treatment options. Discussed importance of taking medications as prescribed. Continue/restart finasteride as discussed and prescribed. Continue terazosin as discussed and prescribed. Recent renal ultrasound results reviewed with the patient today Recent scrotal ultrasound results reviewed with the patient today. All questions were answered. Follow-up in 4-6 months with imaging and labs to be completed prior; or sooner with any issues, concerns, and or questions. Orders: Orders AMB Urinalysis Automated Today Z13.9 - Encounter for screening, unspecified AMB Post Void Residual by ultrasound Today R33.9 - Retention of urine, unspecified Medications: Refilled finasteride 5 mg PO DAILY 90 tabs 3RF 90 days N40.0 - Benign prostatic hyperplasia without lower urinary tract symptoms terazosin 5 mg PO BEDTIME 90 caps 3RF 90 days N40.1 - Benign prostatic hyperplasia with lower urinary tract symptoms, R35.0 - Frequency of micturition Patient Instructions: The patient had an opportunity to ask questions regarding the treatment plan. All questions were answered. Physical exam, labs, and imaging were discussed and reviewed in detail. As well as risks, benefits, and discussion of treatment choices. No major barriers to understanding were identified. The patient expressed understanding and agreement with the above treatment plan. The patient was made aware they should contact our office by phone for worsening of their current condition, the appearance of new symptoms, or with any questions or concerns. Compliance is encouraged with any medications and follow up testing that is ordered. It is a privilege to be allowed the opportunity to participate in? your urological care.? Again, if you have any questions or concerns If you have any questions or concerns please do not hesitate to contact me. The office is [phone]. This note is constructed using voice recognition software. While every effort has been made to ensure accuracy library services assistant errors may have been included. Yours sincerely, MARLON Jama Coding Level of Care Code Est Pt Level 3 (51129) Complex EM visit Add On G2211 Diagnoses Nephrolithiasis N20.0 Left varicocele I86.1 Elevated PSA R97.20 Enlarged prostate N40.0 Urinary retention R33.9 Urinary frequency R35.0 CPT Codes Post Residual Void - PVR CPT Code: 85435-[id number] Void Residual by ultrasound ([id number])
== END 2025-05-02 11:53 | disposition home or self-care (01) ==
LOC: HO.HUSH 10:37
PROVIDERS: PCP Family Medicine; Visit Provider Nurse Practitioner Family
DX: N20.0 Calculus of kidney (principal); I86.1 Scrotal varices; R97.20 Elevated prostate specific antigen [PSA]; N40.0 Benign prostatic hyperplasia without lower urinary tract symptoms; R33.9 Retention of urine, unspecified; R35.0 Frequency of micturition; Z13.9 Encounter for screening, unspecified
CPT/HCPCS: 99213; G2211

== ENCOUNTER → 2025-05-02 10:37 | Outpatient (BNVA) | payer MEDICARE, SELFPAY | PROVIDERS: PCP Family Medicine; Visit Provider Nurse Practitioner Family | DX: N20.0 Calculus of kidney (principal); I86.1 Scrotal varices; R97.20 Elevated prostate specific antigen [PSA]; N40.1 Benign prostatic hyperplasia with lower urinary tract symptoms; R33.9 Retention of urine, unspecified; R35.0 Frequency of micturition | CPT/HCPCS: 51798; 81003; 99212 ==

== ENCOUNTER 2025-05-23 07:31 | Outpatient (REF) | payer MEDICARE, SELFPAY ==
--- OUTSIDE RECORDS SUMMARY | 2025-05-23 07:34 | XMS_ITS | Encounter Summary ---
Author Organization [facility] Address [address] [place] [address] Care Team Providers Care Cotton Expert Name Role Phone Angeline Baez MD Primary Care Provider Un available Reason for Visit * Reason Comments E-prescribe Rx Request Encounter Details Date Type Department Care Team Description 04/14/2021 Refill Medicine/Pediatrics - [address] [id number] Angeline Baez MD E-prescribe Rx Request Social History Tobacco Use Types Packs/Day Years Used Date Smoking Tobacco: Never Smokeless Tobacco: Never Alcohol Use Standard Drinks/Week Comments No 0 (1 standard drink = 0.6 oz pur e alcohol) 3 glasses wine per mo Sex Assigned at Date Recorded Not on file documented as of this encounter Miscellaneous Notes * Telephone Encounter - Evelio Erwin M.A. - 04/15/2021 12:05 PM EDT Faxed to pharmacy * Telephone Encounter - Yunior Maritnez - 04/15/2021 9:38 AM EDT Last OV 09/04/20. Upcoming Appt: NA. Lab Results Component Value Date NA 138 09/04/2020 K 4.6 09/04/2020 CO2 27 09/04/2020 CL 105 09/04/2020 BUN 15 09/04/2020 CREAT 0.89 09/04/2020 GLU 85 09/04/2020 CA 9.0 09/04/2020 GFR > 60 09/04/2020 * Telephone Encounter - Flor Sandeep - 04/15/2021 9:31 AM EDT Patient would like script to be: E-PRESCRIBED/FAXED TO PHARMACY WHEN WAS THE PATIENT'S LAST APPOINTMENT IN ADULT MEDICINE? 09/04/20 WHEN WAS THE LAST TIME THE PATIENT SAW THEIR PCP? 09/05/19 Does patient have an upcoming appointment? No-unable to reach left [facility] to call for appointment due to refill request. Appt due (THE MEDICATION REQUESTED IS ON THE MED LIST ABOVE) All of the medications requested were on the CURRENT MEDS list Did you check the Pharmacy information above?: YES Patient wants: 90 -day supply Is this a mail order prescription request ? NO If the refill is from a FAXED refill request what is the RX # listed on the fax? N/A Patients current insurance carrier is: Payor: [facility] / Plan: [facility] MEDICARE COMPLETE $0 [id number] / Product Type: HMO [id number] documented in this encounter Plan of Treatment Not on file documented as of this encounter Visit Diagnoses Not on filedocumented in this encounter Care Teams Cotton Expert Relationship Specialty Start Date End Date Angeline Baez MD PCP - General Internal Medicine 10/02/14 documented as of this encounter
[2025-05-23 11:21] LABS: Appearance Urine Clear; Glucose Urine UA Negative (Negative); PH 5.5 (5.0-9.0); Specific Gravity - Urine 1.020 (1.005-1.025)
[2025-05-23 11:32] LABS: MANUAL DIFF FLAG NO
[2025-05-23 11:39] LABS: Hematocrit 37.2 % (42.0-52.0); Hemoglobin 13.3 g/dl (14.0-18.0); Imm Gran Abs Auto 0.04 X10*3/uL (0.00-0.03); Imm Gran Pct Auto 0.7 % (0.0-0.4); Lymphocytes Absolute Auto 2.4 X10*3/uL (1.2-4.9); Mean Corpuscular HGB Conc 35.8 g/dl (31.0-36.0); Mean Corpuscular Hemoglobin 34.0 pg (27.0-33.0); Mean Corpuscular Volume 95.1 fL (80.0-98.0); NRBC Abs Auto 0.000 X10*3/uL (0.0-0.012); NRBC Pct Auto 0.0 /100WBC (0.0-0.2); Platelet Count 172 X10*3/uL (160-400); Red Blood Count 3.91 X10*6/uL (4.60-5.80); White Blood Count 5.9 X10*3/uL (4.8-10.8)
[2025-05-23 12:04] LABS: Alanine Aminotransferase 37 U/L (0-40); Albumin Level 4.0 g/dL (3.5-5.0); Alkaline Phosphatase 67 U/L (39-117); Anion Gap 12 (12-20); Aspartate Amino Transferase 25 U/L (5-37); Blood Urea Nitrogen 14 mg/dL (9-16); Calcium 8.7 mg/dL (8.4-10.2); Carbon Dioxide 24 mmol/L (22-29); Chloride 109 mmol/L (96-108); Estimated Glomerular Filt Rate > 60; Potassium 4.4 mmol/L (3.3-5.1); Sodium 141 mmol/L (135-145); Total Protein 6.7 g/dL (6.5-8.0)
[2025-05-23 12:16] LABS: Microalbum/Creatinine Ratio Ur 20.5 ug/mg cr (<30)
[2025-05-23 12:16] LABS: Prostate Specific Antigen 4.04 ng/mL (<0.05-4.0)
== END 2025-05-23 07:32 | disposition home or self-care (01) ==
LOC: HO.WFDLDS 07:31
PROVIDERS: Physician Assistant; Referring Provider Nurse Practitioner Family; Visit Provider Family Medicine
DX: Z00.00 Encounter for general adult medical examination without abnormal findings (principal); I10 Essential (primary) hypertension; R21 Rash and other nonspecific skin eruption; Z13.220 Encounter for screening for lipoid disorders; N50.89 Other specified disorders of the male genital organs; Z12.5 Encounter for screening for malignant neoplasm of prostate
CPT/HCPCS: 36415; 80053; 81003; 82043; 82570; 84153; 84443; 85025

== ENCOUNTER 2025-06-13 10:33 | Outpatient (AMB) | payer MEDICARE, SELFPAY ==
--- NOTE | 2025-06-13 11:06 | MHC.PC.OV ---
Vital Signs 06/13/25 11:09 Height 5 ft 11 in Weight 282 lb 8 oz BMI 39.4 BP 114/60 Blood Pressure Location Rt brachial Position Sitting Respiration 12 Pulse 63 Pulse Source Pulse Oximeter Temp 99.1 F Temp Source Oral Pulse Oximetry (%) 94 Oxygen Delivery Method Room Air Intake Visit Reasons: f/u HTN, diabetes Intake Note: patient is scheduled for htn and dm Tower Control Operator Required: No Allergies aspirin Allergy (Mild, Verified 06/13/25 11:07) swelling Medication List - Last Reconciled 06/13/25 by Kartik Khoury MD atorvastatin 20 mg PO BEDTIME 90 days cetirizine (All Day Allergy (cetirizine)) 10 mg PO DAILY PRN 90 days clopidogrel 75 mg PO DAILY 90 days clotrimazole-betamethasone 1-0.05 % 1 appl topical BID 2 weeks diphenhydramine HCl 2% (Benadryl) 1 appl topical TID PRN 14 days finasteride 5 mg PO DAILY 90 days ketoconazole 2% 1 appl topical DAILY 30 days lisinopril 2.5 mg PO DAILY 90 days metoprolol succinate ER 25 mg PO DAILY 90 days terazosin 5 mg PO BEDTIME 90 days Tobacco use date assessed: 02/16/25 Dental Screening Dental Screen Date: 02/16/25 HPI f/u HTN, diabetes HPI Details 79 y/o male presents to f/u diabetes, HTN. Prior A1c 6.9%. A1c today 7.1%. Pt notes he had stopped his metformin. BP today 114/60, 63p. She is on lisinopril 2.5mg, metoprolol 25mg daily. Complaints of bilateral edema lower extremities. [facility]LY [facility], [facility] Medical History Diabetes Hyperlipidemia Hypertension Deviated septum Surgical History H/O transurethral resection of prostate H/O right inguinal hernia repair Social History Housing: House Patient Tobacco Use Status: Never used Tobacco e-Cigarette/Vaping Use: Never Used Second Hand Smoke Exposure: No service: No Current occupational status: retired Current occupational exposures/hazards: No Cognitive needs: No Hearing needs: No Vision needs: No Questionnaire Thrive Questionnaire Date Thrive assessed: 11/11/24 I am a: Patient What is your living situation today?: I have a steady place to live Within the past 12 months, did the food you bought not last and you didn't have the money to get more?: Never true Within the past 12 months, did you worry whether your food would run out before you got money to buy more?: Never true Do you have trouble paying for medicines?: No Do you have trouble getting transportation to medical appointments?: No Do you have trouble paying your heating and electricity bill?: No Do you have trouble taking care of your child, family member or friend?: No Do you have trouble with day-to-day activities such as bathing, preparing meals, shopping, managing finances, etc.?: No Are you currently unemployed and looking for a job?: No Are you interested in more education?: No Please select the resources that you would like help with: None Currently or been in a relationship where the following occur: No concerns reported THRIVE Score: 0 RADHA-7 AMB Questionnaire RADHA-7 Date RADHA - 7 assessed: 01/14/24 Source: Developed by Drs. Randall Ya, Monet Callejas, Darrell Harmon and colleagues, with an educational елена from [employer]. Review of Systems Const Denies chills, Denies fatigue, Denies fever(s), Denies headache(s) and Denies weakness ENT Denies dizziness and Denies headache(s) Card Denies chest pain, Denies lightheadedness, Denies dyspnea and Denies other (Palpitations) Resp Denies cough, Denies dyspnea, Denies wheezing and Denies other ( shortness of breath) Musc Denies numbness and Denies tingling Neuro Denies dizziness, Denies headache(s), Denies numbness, Denies tingling, Denies paresthesias and Denies weakness Psych Denies anxiety and Denies depression Endo Denies fatigue Aller/Immun Denies wheezing Physical exam (Primary Care) Vital Signs: Last Vital Signs Temp 99.1 F 06/13/25 11:09 Pulse 63 06/13/25 11:09 Resp 12 06/13/25 11:09 BP 114/60 06/13/25 11:09 Pulse Ox 94 06/13/25 11:09 Oxygen Delivery Method Room Air 06/13/25 11:09 BMI result Body Mass Index 39.4 Tobacco/Smoking Status: Tobacco use Status Tobacco use date assessed 02/16/25 06/13/25 11:12 Patient Tobacco Use Status Never used Tobacco 06/13/25 11:12 e-Cigarette/Vaping Use Never Used 06/13/25 11:12 Thrive Assessment: Date of Thrive Assessment Date Thrive assessed 11/11/24 06/13/25 11:12 Currently or been in a relationship where the following occur: No concerns reported Const General: no acute distress and well developed Nutritional Appearance: well nourished Orientation/consciousness: patient oriented x3 HENMT Head: Yes normocephalic and Yes atraumatic Eyes General: appearance normal, both eyes and all related structures Pupils: Equal, round and reactive pupils present EOM: EOMs intact bilaterally Resp Effort & Inspection: normal respiratory effort Auscultation: clear to auscultation bilaterally Cardio Rate: regular rate Rhythm: regular rhythm Heart sounds: S1 normal heart sound present, S2 normal heart sound present, no gallops, no murmurs and no rubs Neuro General: patient oriented x3 and gait normal Cranial nerves: Yes Equal, round and reactive pupils present Psych Affect: normal affect Coding Level of Care Code Est Pt Level 4 (17501) Diagnoses Hypertension I10 Diabetes E11.9 Lower extremity edema R60.0 Assessment & Plan Assessment & Plan (1) Hypertension: Code(s): I10 - Essential (primary) hypertension Category: Medical Plan: Blood pressure is well controlled. Goal is less than 140/90 Continue current medications (2) Diabetes: Code(s): E11.9 - Type 2 diabetes mellitus without complications Category: Medical Plan: A1c climbed from 6.9% to 7.1%. Goal is less than 7% Patient had discontinued use of metformin and was trying an [id number] supplement of [place] and cinnamon. He will resume metformin and discontinue this supplement as it was expensive and his metformin is free (3) Lower extremity edema: Code(s): R60.0 - Localized edema Category: Medical Plan: Patient has trace to 1+ edema in bilateral feet and ankles. Still mild and he elevates his legs and has compression stockings. He has used diuretics in the past from another provider. As his symptoms are mild he should continue elevating legs, watching salt and sodium and using his compression stockings which he is not wearing today. We discussed using diuretics only sparingly if needed when the above other interventions are not working well enough. Patient understands and will continue the above interventions. Orders: Orders Lipid Panel Today E78.5 - Hyperlipidemia, unspecified, Z00.00 - Encounter for general adult medical examination without abnormal findings Comprehensive [place]. Panel Fast Today E78.5 - Hyperlipidemia, unspecified, Z00.00 - Encounter for general adult medical examination without abnormal findings Microalbumin, Random (w Creat) Today I10 - Essential (primary) hypertension UA CC w/rflx Micro + Cult Today I10 - Essential (primary) hypertension, Z00.00 - Encounter for general adult medical examination without abnormal findings Medications: Refilled metformin 250 mg (1/2 x 500 mg) PO BID 90 tabs 2RF 90 days
[2025-06-13 11:09] VITALS: BP 114/60; PULSE 63; RESP 12; TEMP 37.3; O2SAT 94; BMI 39.4
== END 2025-06-13 11:26 | disposition home or self-care (01) ==
PROVIDERS: PCP Family Medicine; Visit Provider Family Medicine
DX: I10 Essential (primary) hypertension (principal); E11.9 Type 2 diabetes mellitus without complications; R60.0 Localized edema

== ENCOUNTER → 2025-06-13 10:33 | Outpatient (BNVA) | payer MEDICARE, SELFPAY | PROVIDERS: PCP Family Medicine; Visit Provider Family Medicine | DX: I10 Essential (primary) hypertension (principal); E11.9 Type 2 diabetes mellitus without complications; R60.0 Localized edema | CPT/HCPCS: 99212 ==

== ENCOUNTER 2025-08-24 07:48 | Outpatient (REF) | payer MEDICARE, SELFPAY ==
[2025-08-24 11:51] LABS: Appearance Urine Clear; Glucose Urine UA Negative (Negative); PH 5.5 (5.0-9.0); Specific Gravity - Urine 1.020 (1.005-1.025)
[2025-08-24 12:06] LABS: Alanine Aminotransferase 47 U/L (0-40); Albumin Level 4.3 g/dL (3.5-5.0); Alkaline Phosphatase 69 U/L (39-117); Anion Gap 14 (12-20); Aspartate Amino Transferase 33 U/L (5-37); Blood Urea Nitrogen 15 mg/dL (9-16); Calcium 9.2 mg/dL (8.4-10.2); Carbon Dioxide 26 mmol/L (22-29); Chloride 105 mmol/L (96-108); Cholesterol 175 mg/dL (<200); Estimated Glomerular Filt Rate > 60; HDL Cholesterol 35 mg/dL (>40); Potassium 4.5 mmol/L (3.3-5.1); Sodium 140 mmol/L (135-145); Total Protein 6.9 g/dL (6.5-8.0); Triglycerides 303 mg/dL (<150)
[2025-08-24 12:31] LABS: Prostate Specific Antigen 5.84 ng/mL (<0.05-4.0)
[2025-08-24 12:34] LABS: Microalbum/Creatinine Ratio Ur 17.8 ug/mg cr (<30)
== END 2025-08-24 07:49 | disposition home or self-care (01) ==
LOC: HO.WFDLDS 07:48
PROVIDERS: Referring Provider Nurse Practitioner Family; Visit Provider Family Medicine
DX: Z00.00 Encounter for general adult medical examination without abnormal findings (principal); Z12.5 Encounter for screening for malignant neoplasm of prostate; I10 Essential (primary) hypertension; E78.5 Hyperlipidemia, unspecified
CPT/HCPCS: 36415; 80053; 80061; 81003; 82043; 82570; 84153

== ENCOUNTER 2025-08-24 09:52 | Outpatient (REF) | payer MEDICARE, SELFPAY ==
--- NOTE | ~2025-08-24 | US_ITS ---
CLINICAL HISTORY: N28.1 - Cyst of kidney, acquired US Renal Comparison: 04/12/2025 Findings: Right kidney normal size and echotexture, 12.2 cm length. Left kidney normal size and echotexture, 11.9 cm length. There are parapelvic left renal cysts largest measuring 1.8 x 1.7 x 1.1 cm. No collecting system dilatation of either kidney. Normal color Doppler. IMPRESSION: 1. Left renal peripelvic bosniak 1 cysts. This document has been electronically signed by: Juan Coles MD on 08/25/2025 10:02:48
--- OUTSIDE RECORDS SUMMARY | 2025-08-24 11:34 | XMS_ITS | Encounter Summary ---
Author Organization [facility] Address [address] [place] [address] Care Team Providers Care Boiler/Chiller Operator Name Role Phone Angeline Baez MD Primary Care Provider Un available Encounter Details Date Type Department Care Team Description 12/12/2014 Orders Only Cardiology - [place] [address] [place] [address] Yaneth Michele PA-C [address] [place] [address] Social History Tobacco Use Types Packs/Day Years Used Date Smoking Tobacco: Never Alcohol Use Standard Drinks/Week Comments No 0 (1 standard drink = 0.6 oz pur e alcohol) rare wine Sex Assigned at Date Recorded Not on file documented as of this encounter Plan of Treatment Not on file documented as of this encounter Visit Diagnoses Not on filedocumented in this encounter Care Teams Boiler/Chiller Operator Relationship Specialty Start Date End Date Angeline Baez MD PCP - General Internal Medicine 10/02/14 documented as of this encounter
--- OUTSIDE RECORDS SUMMARY | 2025-08-24 11:34 | XMS_ITS | Encounter Summary ---
Author Organization [facility] Address [address] [place] [address] Care Team Providers Care Automatic Grinding Machine Operator Name Role Phone Angeline Baez MD Primary Care Provider Un available Encounter Details Date Type Department Care Team Description 11/21/2014 Transfer Records Medical Records [address] [place] [address] Abstract, Provider Social History Tobacco Use Types Packs/Day Years Used Date Smoking Tobacco: Never Assessed Alcohol Use Standard Drinks/Week Comments No 0 (1 standard drink = 0.6 oz pur e alcohol) rare wine Sex Assigned at Date Recorded Not on file documented as of this encounter Plan of Treatment Not on file documented as of this encounter Visit Diagnoses Not on filedocumented in this encounter Care Teams Automatic Grinding Machine Operator Relationship Specialty Start Date End Date Angeline Baez MD PCP - General Internal Medicine 10/02/14 documented as of this encounter
== END 2025-08-24 09:53 | disposition home or self-care (01) ==
LOC: HO.HMGCX 09:52
PROVIDERS: PCP Family Medicine; Visit Provider Nurse Practitioner Family
DX: N28.1 Cyst of kidney, acquired (principal)
CPT/HCPCS: 76775

== ENCOUNTER → 2025-08-24 09:57 | Outpatient (BNV) | payer MEDICARE, SELFPAY | PROVIDERS: PCP Family Medicine; Visit Provider Specialist | DX: N28.1 Cyst of kidney, acquired (principal) | CPT/HCPCS: 76775 ==

== ENCOUNTER 2025-08-31 12:38 | Outpatient (AMB) | payer MEDICARE, SELFPAY ==
--- NOTE | 2025-08-31 12:47 | A.OFFVIS_ITS ---
Intake Visit Reasons: 4m/US/PSA Intake Note: Patient is present for 4M/US/PSA Urology Medication:FINASTERIDE,TERAZOSIN Antibiotic Allergy:NONE Blood Thinner:NONE Parts Driver Required: No Allergies aspirin Allergy (Mild, Verified 08/31/25 13:16) swelling Medication List - Last Reconciled 08/31/25 by MARY Jama- atorvastatin 20 mg PO BEDTIME 90 days cetirizine (All Day Allergy (cetirizine)) 10 mg PO DAILY PRN 90 days clopidogrel 75 mg PO DAILY 90 days clotrimazole-betamethasone 1-0.05 % 1 appl topical BID 2 weeks diphenhydramine HCl 2% (Benadryl) 1 appl topical TID PRN 14 days finasteride 5 mg PO DAILY 90 days ketoconazole 2% 1 appl topical DAILY 30 days lisinopril 2.5 mg PO DAILY 90 days metformin 250 mg (1/2 x 500 mg) PO BID 90 days metoprolol succinate ER 25 mg PO DAILY 90 days terazosin 5 mg PO BEDTIME 90 days HPI Comments Details: Gilberto is a very pleasant 79-year-old male patient of Dr. Khoury. He has a past medical history of hypertension, hyperlipidemia, diabetes, and seasonal allergies. He presents to the office today for follow-up of his elevated PSA and lower urinary tract symptoms. In discussion with the patient today he reports to be doing and feeling well. He denies having had any bothersome urinary issues or concerns since his last office visit. We did review recent PSA results in discussed bump in PSA. Recent renal imaging results reviewed with the patient today 09/02 bilateral kidneys are normal in size and echotexture. There are peripelvic left renal cysts largest measuring 1.8 cm. No collecting system dilatation of either kidney, nephrolithiasis, or hydronephrosis noted bilaterally. Per radiology report. We did discuss increase in PSA despite reports in compliance with finasteride as prescribed. We discussed previous retroperitoneal ultrasound 10/01 enlarged prostate volume measuring 213 mL. Patient with previous scrotal imaging 05/03 noting bilateral testicles are normal in echotexture. Normal flow of bilateral testicles. No suspicious masses or fluid collection noted bilaterally. Left-sided varicoceles. No acute testicular torsion or acute epididymo-orchitis. He discusses his previous history of bladder stones and having had a TURP in [facility] in 2004. PSAs are as follows: 03/30 2.9, 07/01 4.6, 10/01 6.2 percent free:22%, 03/02 2.2, 10/02 2.6, 05/03 4.0, 09/02 5.8 He reports noting significant improvement in urinary frequency and nocturia with 5 mg of terazosin daily. He denies urinary urgency, urinary frequency, incontinence, nocturia, hematuria, dysuria, foul smelling urine, changes to urinary stream, flank pain, fever, and or chills. He is happy with his current voiding parameters. He otherwise offers no other issues or concerns at this time. [facility] Medical History Diabetes Hyperlipidemia Hypertension Deviated septum Surgical History H/O transurethral resection of prostate H/O right inguinal hernia repair Social History Housing: House Patient Tobacco Use Status: Never used Tobacco e-Cigarette/Vaping Use: Never Used Second Hand Smoke Exposure: No service: No Current occupational status: retired Current occupational exposures/hazards: No Cognitive needs: No Hearing needs: No Vision needs: No Review of Systems Const All systems reviewed & are unremarkable except as noted in HPI and below Eyes Reports no additional complaints ENT Reports no additional complaints Card Reports as per HPI Resp Reports no additional complaints GI Reports no additional complaints Reports as per HPI Musc Reports no additional complaints Neuro Reports no additional complaints Psych Reports no additional complaints Endo Reports as per HPI Osei/Lymph Reports no additional complaints Aller/Immun Reports as per HPI Physical Exam Const General: cooperative, healthy appearing, comfortable, no acute distress, well developed, alert and awake Nutritional Appearance: overweight Orientation/consciousness: patient oriented x3 Limitations: no limitations HEENT Head: Yes normal to inspection, Yes normocephalic and Yes atraumatic Ears: hearing grossly normal bilaterally Eyes General: appearance normal, both eyes and all related structures Neck Neck: Yes normal visual inspection and Yes trachea midline Chest Chest palpation & inspection: normal inspection of the chest Resp Effort & Inspection: normal respiratory effort and able to speak in complete sentences Cardio Rate: regular rate GI Inspection: Yes normal to inspection General: Yes no CVA tenderness Back/Spine/Pelvis Back: no CVA tenderness Skin General skin exam: no rashes or lesions noted Neuro General: patient oriented x3 Extrem General: Yes normal to inspection Psych Appearance: grossly normal and well kempt Mental Status: mental status grossly normal Speech and movement: Normal speech and movement present and Clear speech present Affect: normal affect Attitude: cooperative Thought process: Normal thought process present Thought content: Normal thought content present Insight: Fair insight present (Psych) Judgement: Fair judgement present (Psych) Results AMB Urinalysis, Automated UA Leukoctes 0 Arnold/uL Last Edit by RONIT Winston on 08/31/25 13:01 UA Nitrite Negative Last Edit by RONIT Winston on 08/31/25 13:01 UA Urobilinogen 0.2 mg/dL Last Edit by RONIT Winston on 08/31/25 13:0 1 UA Protein 0 mg/dL Last Edit by RONIT Winston on 08/31/25 13:01 UA pH 6.0 Last Edit by RONIT Winston on 08/31/25 13:01 UA Blood 0 Aureliano/uL Last Edit by RONIT Winston on 08/31/25 13:01 UA Specific [place] 1.020 Last Edit by RONIT Winston on 08/31/25 13: 01 UA Ketone Negative Last Edit by RONIT Winston on 08/31/25 13:01 UA Bilirubin 0 mg/dL Last Edit by RONIT Winston on 08/31/25 13:01 UA Glucose 0 mg/dL Last Edit by RONIT Winston on 08/31/25 13:01 Results Reviewed Results Reviewed: Date of Service: 08/24/25 Procedure(s): US renal BI Findings: Right kidney normal size and echotexture, 12.2 cm length. Left kidney normal size and echotexture, 11.9 cm length. There are parapelvic left renal cysts largest measuring 1.8 x 1.7 x 1.1 cm. No collecting system dilatation of either kidney. Normal color Doppler. IMPRESSION: 1. Left renal peripelvic bosniak 1 cysts Assessment & Plan Assessment & Plan (1) Elevated PSA: Code(s): R97.20 - Elevated prostate specific antigen [PSA] Category: Medical (2) Enlarged prostate: Code(s): N40.0 - Benign prostatic hyperplasia without lower urinary tract symptoms Category: Medical (3) Nephrolithiasis: Code(s): N20.0 - Calculus of kidney Category: Medical (4) Renal cyst: Code(s): N28.1 - Cyst of kidney, acquired Category: Medical (5) Urinary frequency: Code(s): R35.0 - Frequency of micturition Category: Medical (6) Incomplete bladder emptying: Code(s): R33.9 - Retention of urine, unspecified Category: Medical (7) Lump in the testicle: Code(s): N50.89 - Other specified disorders of the male genital organs Category: Medical Plan In office urinalysis results reviewed with the patient today; as noted above. Recent PSA results reviewed with the patient today; as noted above. Recent renal imaging results reviewed with the patient today; as noted above. All questions were answered. We did discussed potential causes of elevated PSA as well as further treatment options and risks and benefits of these treatment options. Will obtain MRI for further assessment evaluation. Continue terazosin and finasteride as prescribed. He currently denies any bothersome urinary issues. He reports be happy with current voiding parameters. Follow-up in 1-3 months with imaging, labs, and PVR; or sooner with any issues, concerns, and or questions. Orders: Orders Prostate Specific Antigen 08/24/25 Z12.5 - Encounter for screening for malignant neoplasm of prostate MR pelvis wo/w con Today C61 - Malignant neoplasm of prostate AMB Urinalysis Automated Today Z13.9 - Encounter for screening, unspecified PSA,Total (Free>4and<10) Today N40.0 - Benign prostatic hyperplasia without lower urinary tract symptoms, R97.20 - Elevated prostate specific antigen [PSA] Medications: Refilled finasteride 5 mg PO DAILY 90 tabs 3RF 90 days N40.0 - Benign prostatic hyperplasia without lower urinary tract symptoms terazosin 5 mg PO BEDTIME 90 caps 3RF 90 days N40.1 - Benign prostatic hyperplasia with lower urinary tract symptoms, R35.0 - Frequency of micturition Patient Instructions: The patient had an opportunity to ask questions regarding the treatment plan. All questions were answered. Physical exam, labs, and imaging were discussed and reviewed in detail. As well as risks, benefits, and discussion of treatment choices. No major barriers to understanding were identified. The patient expressed understanding and agreement with the above treatment plan. The patient was made aware they should contact our office by phone for worsening of their current condition, the appearance of new symptoms, or with any questions or concerns. Compliance is encouraged with any medications and follow up testing that is ordered. It is a privilege to be allowed the opportunity to participate in? your urological care.? Again, if you have any questions or concerns If you have any questions or concerns please do not hesitate to contact me. The office is [phone]. This note is constructed using voice recognition software. While every effort has been made to ensure accuracy chef under errors may have been included. Yours sincerely, MARLON Jama Coding Level of Care Code Est Pt Level 3 (47668) Complex EM visit Add On G2211 Diagnoses Elevated PSA R97.20 Enlarged prostate N40.0 Nephrolithiasis N20.0 Renal cyst N28.1 Urinary frequency R35.0 Incomplete bladder emptying R33.9 Lump in the testicle N50.89
== END 2025-08-31 13:19 | disposition home or self-care (01) ==
LOC: HO.HUSH 12:38
PROVIDERS: PCP Family Medicine; Visit Provider Nurse Practitioner Family
DX: Z13.9 Encounter for screening, unspecified (principal)

== ENCOUNTER → 2025-08-31 12:38 | Outpatient (BNVA) | payer MEDICARE, SELFPAY | PROVIDERS: PCP Family Medicine; Visit Provider Nurse Practitioner Family | DX: R97.20 Elevated prostate specific antigen [PSA] (principal); N40.1 Benign prostatic hyperplasia with lower urinary tract symptoms; R35.0 Frequency of micturition; R33.9 Retention of urine, unspecified; N20.0 Calculus of kidney; N28.1 Cyst of kidney, acquired; N50.89 Other specified disorders of the male genital organs | CPT/HCPCS: 81003; 99212 ==

== ENCOUNTER 2025-09-15 10:36 | Outpatient (AMB) | payer MEDICARE, SELFPAY ==
--- NOTE | 2025-09-15 11:46 | A.OFFPC_ITS ---
Vital Signs 09/15/25 11:52 Height 5 ft 11 in Weight 283 lb BMI 39.5 BP 130/62 Blood Pressure Location Lt brachial Position Sitting Respiration 16 Pulse 53 Pulse Source Pulse Oximeter Temp 97.6 F Temp Source Oral Pulse Oximetry (%) 95 Oxygen Delivery Method Room Air Intake Visit Reasons: f/u HTN, diabetes Intake Note: patient is scheduled to follow up for htn and dm a1c was done in office Lathe Turner Required: No Allergies aspirin Allergy (Mild, Verified 09/15/25 11:52) swelling Medication List - Last Reconciled 09/15/25 by Kartik Khoury MD atorvastatin 20 mg PO BEDTIME 90 days cetirizine (All Day Allergy (cetirizine)) 10 mg PO DAILY PRN 90 days clopidogrel 75 mg PO DAILY 90 days clotrimazole-betamethasone 1-0.05 % 1 appl topical BID 2 weeks diphenhydramine HCl 2% (Benadryl) 1 appl topical TID PRN 14 days finasteride 5 mg PO DAILY 90 days ketoconazole 2% 1 appl topical DAILY 30 days lisinopril 2.5 mg PO DAILY 90 days metformin 250 mg (1/2 x 500 mg) PO BID 90 days metoprolol succinate ER 25 mg PO DAILY 90 days terazosin 5 mg PO BEDTIME 90 days Tobacco use date assessed: 02/16/25 Dental Screening Dental Screen Date: 02/16/25 HPI f/u HTN, diabetes HPI Details 79 y/o male presents to f/u hypertension , diabetes. Blood pressure today 130/62. He is on metoprolol 25mg, lisinopril 2.5mg daily. A1c today 09/15/25 7.2%. Pt reports some ear discomfort/cerumen impaction. [facility] Medical History Diabetes Hyperlipidemia Hypertension Deviated septum Surgical History H/O transurethral resection of prostate H/O right inguinal hernia repair Social History Housing: House Patient Tobacco Use Status: Never used Tobacco e-Cigarette/Vaping Use: Never Used Second Hand Smoke Exposure: No service: No Current occupational status: retired Current occupational exposures/hazards: No Cognitive needs: No Hearing needs: No Vision needs: No Questionnaire Thrive Questionnaire Date Thrive assessed: 11/11/24 I am a: Patient What is your living situation today?: I have a steady place to live Within the past 12 months, did the food you bought not last and you didn't have the money to get more?: Never true Within the past 12 months, did you worry whether your food would run out before you got money to buy more?: Never true Do you have trouble paying for medicines?: No Do you have trouble getting transportation to medical appointments?: No Do you have trouble paying your heating and electricity bill?: No Do you have trouble taking care of your child, family member or friend?: No Do you have trouble with day-to-day activities such as bathing, preparing meals, shopping, managing finances, etc.?: No Are you currently unemployed and looking for a job?: No Are you interested in more education?: No Please select the resources that you would like help with: None Currently or been in a relationship where the following occur: No concerns reported THRIVE Score: 0 RADHA-7 AMB Questionnaire RADHA-7 Date RADHA - 7 assessed: 01/14/24 Source: Developed by Drs. Randall Ya, Monet Callejas, Darrell Harmon and colleagues, with an educational елена from [employer]. Review of Systems Const Denies chills, Denies fatigue, Denies fever(s), Denies headache(s) and Denies weakness ENT Denies dizziness and Denies headache(s) Card Denies dyspnea Resp Denies cough, Denies dyspnea, Denies wheezing and Denies other (shortness of breath) Musc Denies numbness and Denies tingling Neuro Denies dizziness, Denies headache(s), Denies numbness, Denies tingling and Denies weakness Psych Denies anxiety and Denies depression Endo Denies fatigue Aller/Immun Denies wheezing Physical exam (Primary Care) Vital Signs: Last Vital Signs Temp 97.6 F 09/15/25 11:52 Pulse 53 09/15/25 11:52 Resp 16 09/15/25 11:52 BP 130/62 09/15/25 11:52 Pulse Ox 95 09/15/25 11:52 Oxygen Delivery Method Room Air 09/15/25 11:52 BMI result Body Mass Index 39.5 Tobacco/Smoking Status: Tobacco use Status Tobacco use date assessed 02/16/25 09/15/25 11:47 Patient Tobacco Use Status Never used Tobacco 09/15/25 11:47 e-Cigarette/Vaping Use Never Used 09/15/25 11:47 Thrive Assessment: Date of Thrive Assessment Date Thrive assessed 11/11/24 09/15/25 11:47 Currently or been in a relationship where the following occur: No concerns reported Const General: well developed; No acute distress Nutritional Appearance: well nourished Orientation/consciousness: patient oriented x3 HENMT Head: Yes normocephalic and Yes atraumatic Eyes General: appearance normal, both eyes and all related structures Pupils: Equal, round and reactive pupils present EOM: EOMs intact bilaterally Resp Effort & Inspection: normal respiratory effort Neuro General: patient oriented x3 and gait normal Cranial nerves: Yes Equal, round and reactive pupils present Psych Affect: normal affect Results AMB Hemoglobin A1c AMB Hemoglobin A1c 7.2 % Last Edit by RONIT Healy on 09/15/25 14:29 Results Reviewed Results Reviewed: Laboratory Last Values Hgb A1c (Clinic) 7.2 % (4.0-6.0) H 09/15/25 14:28 Coding Level of Care Code Est Pt Level 4 (34599) Diagnoses Hypertension I10 Diabetes E11.9 Liver enzyme elevation R74.8 Congestion of right ear H93.8X1 Cerumen impaction H61.20 Assessment & Plan Assessment & Plan (1) Hypertension: Code(s): I10 - Essential (primary) hypertension Category: Medical Plan: Blood pressure is controlled. Goal is less than 140/90 Continue current medication Watch salt and sodium in diet (2) Diabetes: Code(s): E11.9 - Type 2 diabetes mellitus without complications Category: Medical Plan: A1c climbed again to 7.2%. A1c goal is about 7.0% Increase evening metformin dose He will take 250 mg in the morning and 500 mg at night Work on diabetic diet (3) Liver enzyme elevation: Code(s): R74.8 - Abnormal levels of other serum enzymes Category: Medical Plan: Work on weight loss and good hydration Will recheck next blood draw (4) Congestion of right ear: Code(s): H93.8X1 - Other specified disorders of right ear Category: Medical (5) Cerumen impaction: Code(s): H61.20 - Impacted cerumen, unspecified ear Category: Medical Plan Right ear discomfort and change in hearing. Decreased perception of sound at right ear. Also has bilateral cerumen impaction, left worse than right. Orders: Orders Comprehensive Met. Panel Today R74.8 - Abnormal levels of other serum enzymes AMB Hemoglobin A1c Today E11.9 - Type 2 diabetes mellitus without complications Referrals Audiology Referral H91.91 - Unspecified hearing loss, right ear Medications: Changed From metformin 250 mg (1/2 x 500 mg) PO BID 90 days 90 tabs 2RF To metformin 250 mg (1/2 tab) AM & 500 mg (1 tab) PM orally 2 times a day; 135 tabs 2RF 90 days
[2025-09-15 11:52] VITALS: BP 130/62; PULSE 53; RESP 16; TEMP 36.4; O2SAT 95; BMI 39.5
== END 2025-09-15 12:44 | disposition home or self-care (01) ==
LOC: HO.HMCFM 10:37
PROVIDERS: PCP Family Medicine; Visit Provider Family Medicine
DX: E11.9 Type 2 diabetes mellitus without complications (principal); I10 Essential (primary) hypertension; R74.01 Elevation of levels of liver transaminase levels; H92.01 Otalgia, right ear; H91.91 Unspecified hearing loss, right ear; H61.23 Impacted cerumen, bilateral

== ENCOUNTER → 2025-09-15 10:36 | Outpatient (BNVA) | payer MEDICARE, SELFPAY | PROVIDERS: PCP Family Medicine; Visit Provider Family Medicine | DX: I10 Essential (primary) hypertension (principal); E11.9 Type 2 diabetes mellitus without complications; R74.8 Abnormal levels of other serum enzymes; H61.20 Impacted cerumen, unspecified ear; H93.8X1 Other specified disorders of right ear | CPT/HCPCS: 83036; 99212 ==

== ENCOUNTER 2025-11-08 07:47 | Outpatient (REF) | payer MEDICARE, SELFPAY ==
[2025-11-08 11:57] LABS: Alanine Aminotransferase 46 U/L (0-40); Albumin Level 4.2 g/dL (3.5-5.0); Alkaline Phosphatase 72 U/L (39-117); Anion Gap 13 (12-20); Aspartate Amino Transferase 28 U/L (5-37); Blood Urea Nitrogen 14 mg/dL (9-16); Calcium 9.2 mg/dL (8.4-10.2); Carbon Dioxide 26 mmol/L (22-29); Chloride 106 mmol/L (96-108); Estimated Glomerular Filt Rate > 60; Potassium 4.6 mmol/L (3.3-5.1); Sodium 140 mmol/L (135-145); Total Protein 6.7 g/dL (6.5-8.0)
[2025-11-08 12:30] LABS: PSA,Total (Free>4and<10) 5.62 ng/mL (0.00-4.00)
[2025-11-10 17:58] LABS: Free Prostate Spec Ag 1.1 ng/mL; Percent Free Prostate Spec Ag 19 % (calc) (>25)
== END 2025-11-08 07:48 | disposition home or self-care (01) ==
LOC: HO.WFDLDS 07:47
PROVIDERS: Family Medicine; Visit Provider Nurse Practitioner Family
DX: Z12.5 Encounter for screening for malignant neoplasm of prostate (principal); N40.0 Benign prostatic hyperplasia without lower urinary tract symptoms; R97.20 Elevated prostate specific antigen [PSA]; R74.8 Abnormal levels of other serum enzymes
CPT/HCPCS: 36415; 80053; 84153; 84154